=== PATIENT | male | born 1965 | race Caucasian/White ===

== ENCOUNTER → 2017-11-15 | Outpatient (CLI) | payer BC, OTHER ==
--- NOTE | 2017-11-15 21:25 | MR ---
EXAMINATION TYPE: MR brain wo/w con DATE OF EXAM: 11/15/2017 COMPARISON: NONE HISTORY: Headaches, Gadavist 9ml CONTRAST: Performed utilizing 9 mL intravenous Gadavist gadolinium contrast. TECHNIQUE: Multiplanar, multiecho imaging on a 3.0 Vee magnet is performed through the brain. Stud y is performed within 24 hours of arrival to the hospital. The craniovertebral junction is normal. The pituitary is normal. Diffusion-weighted imaging is performed. No abnormal hyperintensity is present to suggest an acute i ntracranial infarct or acute ischemic change. Signal within the brain appears unremarkable. Ventricles and sulci are appropriate for the patient age. Minimal mucosal thickening is within the left maxillary sinus. Mild mucosal thickening is within ethm oid air cells. No abnormal enhancement is evident. IMPRESSIONS: 1. No acute intracranial process.
== END | disposition home or self-care (01) ==
LOC: RADMRIMAIN 18:58
PROVIDERS: ATTEND Family Medicine
DX: R51 Headache (principal)
CPT/HCPCS: 70553; A9581

== ENCOUNTER → 2019-01-02 | Outpatient (CLI) | payer BC, OTHER ==
--- NOTE | 2019-01-03 10:26 | US ---
EXAMINATION TYPE: US kidneys/renal and bladder DATE OF EXAM: 01/02/2019 COMPARISON: NONE CLINICAL HISTORY: Hematuria R31.9. Macroscopic hematuria x twice. No pain. EXAM MEASUREMENTS: Right Kidney: 9.6 x 6.1 x 6.4 cm Left Kidney: 11.2 x 4.9 x 6.1 cm Right Kidney: No hydronephrosis or masses seen Left Kidney: Mild hydronephrosis. Cystic appearing lesion= 2.8 x 2.0 x 1.8 cm in mid pole. Bladder: Distended. Nonvascular lesions seen protruding from bladder wall. This could be due to wall hypertrophy and neurogenic bladder. Direct visualization is recommended. Underlying masses are not e xcluded. Right jet visualized Incidental finding- Prominent enlarged prostate = 7.1 x 6.8 x 4.4 cm IMPRESSION: 1. Mild left hydronephrosis. 2. Left renal cyst. 3. Urinary bladder masses versus trabeculation of urinary bladder wall. 4. Prostate hypertrophy
== END ==
LOC: RADUSWWP 16:18
PROVIDERS: ATTEND Family Medicine
DX: N13.30 Unspecified hydronephrosis (principal); N28.1 Cyst of kidney, acquired
CPT/HCPCS: 76770

== ENCOUNTER 2019-09-18 16:03 | Observation (INO) | payer BC ==
[2019-09-19 06:37] VITALS: TEMP 98.8
[2019-09-19 08:50] VITALS: RESP 20
[2019-09-19 12:06] VITALS: BP 90/50; PULSE 83
== END 2019-09-19 14:11 | disposition home or self-care (01) ==
LOC: EC 16:03 → INTOOBSV 18:44 → UNDOADMIN 18:44 → 3SCARD 18:44 → UNDODISIN 09-19 14:11
PROVIDERS: ADMIT Internal Medicine; ATTEND Internal Medicine
DX: I95.1 Orthostatic hypotension (principal); R55 Syncope and collapse; I42.8 Other cardiomyopathies; F31.9 Bipolar disorder, unspecified; I50.22 Chronic systolic (congestive) heart failure; Z95.810 Presence of automatic (implantable) cardiac defibrillator; Z83.3 Family history of diabetes mellitus; Z84.1 Family history of disorders of kidney and ureter; Z79.2 Long term (current) use of antibiotics; Z79.899 Other long term (current) drug therapy
CPT/HCPCS: 96361 ×3; 93005 ×2; 96360; 99285; 36415; 93306; 83880; 80053; 80048; 82550; 82553; 80162; 80178; 83735; 84484; 85025 ×2; 85610; 85730; 81003; 71046; G0378 ×2

== ENCOUNTER 2020-11-07 22:02 | Inpatient (IN) | payer BC, OTHER ==
--- NOTE | 2020-11-07 22:39 | ED ---
Abdominal Pain HPI - General Chief Complaint: Abdominal Pain Stated Complaint: hernia Time Seen by Provider: 11/07/20 22:21 Source: patient Mode of arrival: ambulatory Limitations: no limitations - History of Present Illness Initial Comments: This patient is a 55-year-old man who presents to be evaluated for abdominal discomfort. The patient states that he has long-standing history of umbilical hernia and that he usually wears a binder for this. He states that he had been doing a moderate amount of shoveling over the past few days and he notices h ernia was more prominent than usual. He states that in reducing it yesterday, he had more intense pain with it than he has ever had. He states that since reducing it yesterday he has not felt right. He also had an episode of vomiting yesterday. He states that he has not felt like eating today and has not really taken much to eat or drink. He has not noted any change in bowel movements. No change in urination. No scrotal or testicular pain or swelling. MD Complaint: abdominal pain -: days(s) Location: periumbilical Radiation: none Migration to: no migration Severity: mild Quality: other Consistency: constant Improves With: nothing Worsens With: nothing Associated Symptoms: vomiting - Related Data Home Medications Medication Instructions Recorded Confirmed Furosemide [Lasix] 60 mg PO DAILY 09/18/19 11/08/20 [place] Carbonate ER [Lithobid] 450 mg PO BID 09/18/19 11/08/20 Metoprolol Succinate [Toprol XL] 25 mg PO BID 11/08/20 11/08/20 QUEtiapine [SEROquel] 100 mg PO HS 11/08/20 11/08/20 Spironolactone 25 mg PO BID 11/08/20 11/08/20 buPROPion SR [Wellbutrin Sr] 150 mg PO TID 11/08/20 11/08/20 lisinopriL [Zestril] 2.5 mg PO DAILY 11/08/20 11/08/20 Allergies Allergy/AdvReac Type Severity Reaction Status Date / Time No Known Allergies Allergy Verified 11/08/20 08:40 Review of Systems ROS Statement: Those systems with pertinent positive or pertinent negative responses have been documented in the HPI. ROS Other: All systems not noted in ROS Statement are negative. Constitutional: Denies: fever, chills Respiratory: Denies: cough, dyspnea Cardiovascular: Denies: chest pain, palpitations, edema Gastrointestinal: Reports: as per HPI, abdominal pain, vomiting. Denies: nausea, diarrhea, constipation, hematemesis, melena, hematochezia Genitourinary: Denies: dysuria, hematuria, testicular pain, testicular mass Musculoskeletal: Denies: back pain Skin: Denies: rash Neurological: Denies: headache, weakness, numbness Past Medical History Past Medical History: Chest Pain / Angina, Heart Failure Additional Past Medical History / Comment(s): myocarditis, abd hernia History of Any Multi-Drug Resistant Organisms: None Reported Past Surgical History: Heart Catheterization, Pacemaker Past Anesthesia/Blood Transfusion Reactions: Previous Problems w/ Anesthesia Additional Past Anesthesia/Blood Transfusion Reaction / Comment(s): pt. states during the placement of his defibrillator he could feel everything they were doing but was unable to talk Type of Cardiac Device: AICD Device Placement Date:: 09/14/2019 Past Psychological History: Bipolar Smoking Status: Never smoker Past Alcohol Use History: None Reported Past Drug Use History: None Reported - Past Family History Father Family Medical History: Diabetes Mellitus Mother Family Medical History: Renal Disease Additional Family Medical History / Comment(s): pt. states he did not have any contact with his mother over the last 15 years but had step family tell him that she had a valve replacement and eventually from kidney failure General Exam Limitations: no limitations General appearance: alert, in no apparent distress Head exam: Present: atraumatic, normocephalic Eye exam: Present: normal appearance. Absent: scleral icterus, conjunctival injection Neck exam: Present: normal inspection, full ROM Respiratory exam: Present: normal lung sounds bilaterally. Absent: respiratory distress, wheezes, rales, rhonchi, stridor Cardiovascular Exam: Present: regular rate, normal rhythm, normal heart sounds. Absent: systolic murmur, diastolic murmur, rubs, gallop GI/Abdominal exam: Present: soft, tenderness, normal bowel sounds, hernia (There is an umbilical hernia, moderate tenderness). Absent: distended, guarding, rebound, rigid, mass, pulsatile mass Extremities exam: Present: normal inspection, normal capillary refill. Absent: pedal edema, calf tenderness Back exam: Present: normal inspection. Absent: CVA tenderness (R), CVA tenderness (L) Neurological exam: Present: alert Skin exam: Present: warm, dry, intact, normal color. Absent: rash Course Vital Signs 11/07/20 11/08/20 11/08/20 22:03 00:00 01:57 Temperature 99.3 F 99.4 F 99.4 F Pulse Rate 110 H 97 91 Pulse Rate [ Pulse Oximetery ] Respiratory 20 18 18 Rate Blood Pressure 132/84 122/75 111/73 Blood Pressure [Right Arm] O2 Sat by Pulse 98 96 96 Oximetry 11/08/20 02:00 Temperature 98.2 F Pulse Rate Pulse Rate [ 91 Pulse Oximetery ] Respiratory 16 Rate Blood Pressure Blood Pressure 116/69 [Right Arm] O2 Sat by Pulse 99 Oximetry - Reevaluation(s) Reevaluation #1: 11/07/20 23:50 I had reviewed the patient's CT which does suspected perforation. I shortly thereafter also received a call from radiology with their interpretation. Dr. Kamara, from surgery was called and we discussed the case. Patient started on antibiotics and will go to the OR. I did also phoned the patient's eyelet row marker Dr. Boom Link, who informed that the patient does have some dilated cardiomyopathy with an ejection fraction probably 15-20%, but no coronary artery disease by recent catheterization. Medical Decision Making - Lab Data Result diagrams: 11/11/20 06:33 11/09/20 05:09 Lab Results 11/07/20 11/07/20 11/07/20 Range/Units 22:40 22:40 22:40 WBC 15.7 H (3.8-10.6) k/uL RBC 4.91 (4.30-5.90) m/uL Hgb 14.0 (13.0-17.5) gm/dL Hct 41.5 (39.0-53.0) % MCV 84.5 (80.0-100.0) fL MCH 28.5 (25.0-35.0) pg MCHC 33.7 (31.0-37.0) g/dL RDW 13.4 (11.5-15.5) % Plt Count 258 (150-450) k/uL MPV 7.5 Neutrophils % 77 % Lymphocytes % 14 % Monocytes % 6 % Eosinophils % 3 % Basophils % 0 % Neutrophils # 12.0 H (1.3-7.7) k/uL Lymphocytes # 2.2 (1.0-4.8) k/uL Monocytes # 0.9 (0-1.0) k/uL Eosinophils # 0.4 (0-0.7) k/uL Basophils # 0.0 (0-0.2) k/uL Sodium 138 (137-145) mmol/L Potassium 4.0 (3.5-5.1) mmol/L Chloride 103 (98-107) mmol/L Carbon Dioxide 27 (22-30) mmol/L Anion Gap 8 mmol/L BUN 23 H (9-20) mg/dL Creatinine 1.16 (0.66-1.25) mg/dL Est GFR (CKD-EPI)AfAm 83 (>60 ml/min/1.73 sqM) Est GFR (CKD-EPI)NonAf 72 (>60 ml/min/1.73 sqM) Glucose 107 H (74-99) mg/dL Plasma Lactic Acid [place]man (0.7-2.0) mmol/L Calcium 9.7 (8.4-10.2) mg/dL Total Bilirubin 0.7 (0.2-1.3) mg/dL AST 21 (17-59) U/L ALT 26 (4-49) U/L Alkaline Phosphatase 47 (38-126) U/L Total Protein 7.1 (6.3-8.2) g/dL Albumin 4.1 (3.5-5.0) g/dL Amylase 45 (30-110) U/L Lipase 112 (23-300) U/L Urine Color Yellow Urine Appearance Clear (Clear) Urine pH 7.0 (5.0-8.0) Ur Specific [place] >1.050 H (1.001-1.035) Urine Protein Trace H (Negative) Urine Glucose (UA) Negative (Negative) Urine Ketones Negative (Negative) Urine Blood Negative (Negative) Urine Nitrite Negative (Negative) Urine Bilirubin Negative (Negative) Urine Urobilinogen <2.0 (<2.0) mg/dL Ur Leukocyte Esterase Negative (Negative) 11/07/20 Range/Units 22:40 WBC (3.8-10.6) k/uL RBC (4.30-5.90) m/uL Hgb (13.0-17.5) gm/dL Hct (39.0-53.0) % MCV (80.0-100.0) fL MCH (25.0-35.0) pg MCHC (31.0-37.0) g/dL RDW (11.5-15.5) % Plt Count (150-450) k/uL MPV Neutrophils % % Lymphocytes % % Monocytes % % Eosinophils % % Basophils % % Neutrophils # (1.3-7.7) k/uL Lymphocytes # (1.0-4.8) k/uL Monocytes # (0-1.0) k/uL Eosinophils # (0-0.7) k/uL Basophils # (0-0.2) k/uL Sodium (137-145) mmol/L Potassium (3.5-5.1) mmol/L Chloride (98-107) mmol/L Carbon Dioxide (22-30) mmol/L Anion Gap mmol/L BUN (9-20) mg/dL Creatinine (0.66-1.25) mg/dL Est GFR (CKD-EPI)AfAm (>60 ml/min/1.73 sqM) Est GFR (CKD-EPI)NonAf (>60 ml/min/1.73 sqM) Glucose (74-99) mg/dL Plasma Lactic Acid Usman 1.3 (0.7-2.0) mmol/L Calcium (8.4-10.2) mg/dL Total Bilirubin (0.2-1.3) mg/dL AST (17-59) U/L ALT (4-49) U/L Alkaline Phosphatase (38-126) U/L Total Protein (6.3-8.2) g/dL Albumin (3.5-5.0) g/dL Amylase (30-110) U/L Lipase (23-300) U/L Urine Color Urine Appearance (Clear) Urine pH (5.0-8.0) Ur Specific [place] (1.001-1.035) Urine Protein (Negative) Urine Glucose (UA) (Negative) Urine Ketones (Negative) Urine Blood (Negative) Urine Nitrite (Negative) Urine Bilirubin (Negative) Urine Urobilinogen (<2.0) mg/dL Ur Leukocyte Esterase (Negative) Critical Care Time Critical Care Time: Yes (30 minutes) Disposition Clinical Impression: Abdominal pain, Incarcerated umbilical hernia, Perforated bowel Disposition: ADMITTED IP TO THIS [facility] Condition: Serious Is patient prescribed a controlled substance at d/c from ED?: No
[2020-11-07 22:53] LABS: Basophils % (A) 0 %; Eosinophils # (A) 0.4 k/uL (0-0.7); Eosinophils % (A) 3 %; HCT 41.5 % (39.0-53.0); Lymphocytes # (A) 2.2 k/uL (1.0-4.8); Lymphocytes % (A) 14 %; MCH 28.5 pg (25.0-35.0); MCHC 33.7 g/dL (31.0-37.0); MCV 84.5 fL (80.0-100.0); Mean Platelet Volume 7.5; Monocytes # (A) 0.9 k/uL (0-1.0); Monocytes % (A) 6 %; Neutrophils % (A) 77 %; Platelet Count 258 k/uL (150-450); RBC 4.91 m/uL (4.30-5.90); RDW 13.4 % (11.5-15.5); WBC 15.7 k/uL (3.8-10.6)
[2020-11-07 23:09] LABS: Albumin 4.1 g/dL (3.5-5.0); Calcium 9.7 mg/dL (8.4-10.2); Total Bilirubin 0.7 mg/dL (0.2-1.3); Total Protein 7.1 g/dL (6.3-8.2)
--- NOTE | 2020-11-07 23:39 | CT ---
EXAMINATION TYPE: CT abdomen pelvis w con DATE OF EXAM: 11/07/2020 COMPARISON: None HISTORY: pain CT DLP: 1324 mGycm Automated exposure control for dose reduction was used. CONTRAST: Performed with IV Contrast, patient injected with 100 mL of Isovue 300. Images obtained from the diaphragm to the floor the pelvis with IV contrast. There is mild subsegmental atelectasis at the left lung base. There is no pleural effusion. Heart is enlarged. There is no pericardial effusion. There are cardiac leads. Liver shows no focal defect. There is some fatty infiltration of the posterior right lobe of the live r. Gall bladder appears normal. Spleen is intact. Stomach is intact. There is no pancreatic mass. There is no adrenal mass. Kidneys show satisfactory contrast opacificati on. There is no hydronephrosis. There are small cortical cysts in the kidneys that measure up to 2.5 cm. There is no hydronephrosis. Delayed images show normal renal excretion. There is no retroperitone al adenopathy. There is 2 mm calculus upper pole right kidney. There are some dilated small bowel loops in the mid abdomen. There is incarcerated umbilical hernia w hich contains small bowel. Small bowel is dilated up to 3.8 cm. There is extraluminal air collection in the mid abdomen posterior to the dilated small bowel. There i s mesenteric fat stranding around the air. Distal ileum has normal diameter. There are diverticula of the descending colon and sigmoid colon. There is moderate enlargement of the prostate gland that measures 7.5 cm. There is fat containing bilateral inguinal hernias. There is no evidence of a bladder mass. Lumbar vertebra have normal alignment. There is disc space narrowing at L5-S1. There is no lumbar com pression fracture. The bony pelvis is intact. The hip joints are intact. I see no bony destructive pr ocess. There is some degenerative cyst formation in the left acetabulum. IMPRESSION: Extraluminal air consistent with perforated small bowel in the mid abdomen. Incarcerated loop of smal l bowel which is dilated. It is not clear if this is the site of a mechanical bowel obstruction. Dila tahir small bowel also could relate to ileus. This exam was discussed with Dr. Galindo at 11:45 PM.
[2020-11-07] MEDS ORDERED: PIPERACILLIN-TAZOBACTAM 3.375 GM in SODIUM CHLORIDE 0.9% 100 ML IVPB STA (23:44)
[2020-11-08 00:01] LABS: Appearance,Urine Clear (Clear); Bilirubin,Urine Negative (Negative); Blood,Urine Negative (Negative); Color,Urine Yellow; Glucose,Urine (UA) Negative (Negative); Ketones,Urine Negative (Negative); Leukocyte Esterase,Urine Negative (Negative); Nitrite,Urine Negative (Negative); Protein,Urine Trace (Negative); Urobilinogen,Urine <2.0 mg/dL (<2.0)
[2020-11-08 00:02] LABS: Specific Gravity,Urine >1.050 (1.001-1.035)
[2020-11-08] MEDS ORDERED: HYDROmorphone 1 MG/ML 1 ML SYRINGE IVP PRN (00:14)
[2020-11-08] MEDS ORDERED: SODIUM CHLORIDE 0.9% 1,000 ML IV STA (00:14)
[2020-11-08] MEDS ORDERED: ONDANSETRON 4 MG/2 ML VIAL IVP PRN (00:14)
[2020-11-08] MEDS ORDERED: NALOXONE 0.4 MG/ML 1 ML VIAL IV PRN ×2 (00:14→06:41)
[2020-11-08] MEDS ORDERED: HYDROmorphone 0.5 MG/0.5 ML SYRINGE IVP PRN (00:14)
[2020-11-08 04:45] LABS: INR 0.9 (<1.2); Partial Thromboplastin Time 25.5 sec (22.0-30.0)
[2020-11-08] MEDS ORDERED: PHENYLEPHRINE-0.9% NACL SYG 1,000 MCG/10 ML SYRINGE ONE (06:12)
[2020-11-08] MEDS ORDERED: SUCCINYLCHOLINE CHLORIDE 100 MG/5 ML SYR IV ONE (06:12)
[2020-11-08] MEDS ORDERED: fentaNYL (PF) 50 MCG/ML 2 ML AMP ONE (06:12)
[2020-11-08] MEDS ORDERED: HYDROmorphone (PF) 1 MG/ML ONE (06:12)
[2020-11-08] MEDS ORDERED: PROPOFOL 10 MG/ML 20 ML VIAL IV ONE (06:12)
[2020-11-08] MEDS ORDERED: ONDANSETRON 4 MG/2 ML VIAL ONE (06:12)
[2020-11-08] MEDS ORDERED: MIDAZOLAM 2 MG/2 ML VIAL ONE (06:12)
[2020-11-08] MEDS ORDERED: GLYCOPYRROLATE 0.2 MG/ML 2 ML VIAL ONE (06:12)
[2020-11-08] MEDS ORDERED: ROCURONIUM 10 MG/ML (5 ML VIAL) IV ONE (06:12)
[2020-11-08] MEDS ORDERED: NEOSTIGMINE 1 MG/ML 10 ML VIAL ONE (06:12)
[2020-11-08] MEDS ORDERED: LIDOCAINE 1% INJ 10MG/ML (20 ML MDV) ONE (06:12)
[2020-11-08] MEDS ORDERED: DEXAMETHASONE SOD PHOSPHATE 4 MG/ML 1 ML VIAL ONE (06:12)
--- NOTE | 2020-11-08 06:14 | P.GSHP ---
History of Present Illness H&P Date: 11/08/20 55-year-old male presents to the emergency department with complaints of abdominal pain. He states that he has had a chronic abdominal wall hernia that he is able to spontaneously reduce. Over the past week, he has had increased level of activity with shoveling snow and states that he has had to reduce his hernia a few times. He states that yesterday on his attempt to reduce his hernia is hernia was noted to be hard to the touch and when he pushed it in there is a sharp stabbing pain. He has complained of abdominal pain ever since that time and feels the pain is sharp and stabbing. Denies any fevers, chills, chest pain or shortness of breath. CT of the abdomen and pelvis was performed and this did reveal a ventral hernia containing small bowel with a pocket of extraluminal air and fluid concern for bowel perforation. - Review of Systems All systems: negative Past Medical History Past Medical History: Chest Pain / Angina, Heart Failure, Syncope Additional Past Medical History / Comment(s): myocarditis, abd hernia History of Any Multi-Drug Resistant Organisms: None Reported Past Surgical History: Heart Catheterization, Pacemaker Past Anesthesia/Blood Transfusion Reactions: Previous Problems w/ Anesthesia Additional Past Anesthesia/Blood Transfusion Reaction / Comment(s): pt. states during the placement of his defibrillator he could feel everything they were doing but was unable to talk Type of Cardiac Device: AICD Device Placement Date:: 09/14/2019 Past Psychological History: Bipolar Smoking Status: Never smoker Past Alcohol Use History: None Reported Past Drug Use History: None Reported - Past Family History Father Family Medical History: Diabetes Mellitus Mother Family Medical History: Renal Disease Additional Family Medical History / Comment(s): pt. states he did not have any contact with his mother over the last 15 years but had step family tell him that she had a valve replacement and eventually from kidney failure Medications and Allergies Home Medications Medication Instructions Recorded Confirmed Type Furosemide [Lasix] 20 mg PO DAILY 09/18/19 11/08/20 History [place] Carbonate ER [Lithobid] 450 mg PO BID 09/18/19 11/08/20 History Metoprolol Succinate [Toprol XL] 25 mg PO BID 11/08/20 11/08/20 History QUEtiapine [SEROquel] 100 mg PO HS 11/08/20 11/08/20 History Spironolactone 25 mg PO BID 11/08/20 11/08/20 History buPROPion SR [Wellbutrin Sr] 150 mg PO TID 11/08/20 11/08/20 History lisinopriL [Zestril] 2.5 mg PO DAILY 11/08/20 11/08/20 History Allergies Allergy/AdvReac Type Severity Reaction Status Date / Time No Known Allergies Allergy Verified 11/07/20 22:06 Surgical - Exam Osteopathic Statement: *. No significant issues noted on an osteopathic structural exam other than those noted in the History and Physical/Consult. Vital Signs Temp Pulse Resp BP Pulse Ox 99.3 F 110 H 20 132/84 98 11/07/20 22:03 11/07/20 22:03 11/07/20 22:03 11/07/20 22:03 11/07/20 22:03 - General well developed, well nourished, no distress - Eyes PERRL - Neck trachea midline - Respiratory normal respiratory effort - Abdomen Soft, tender to palpation, mildly distended, midline ventral hernia - Psychiatric oriented to time, oriented to person, oriented to place Results - Labs 11/07/20 22:40 11/07/20 22:40 Abnormal Lab Results - Last 24 Hours (Table) 11/07/20 11/07/20 11/07/20 Range/Units 22:40 22:40 22:40 WBC 15.7 H (3.8-10.6) k/uL Neutrophils # 12.0 H (1.3-7.7) k/uL BUN 23 H (9-20) mg/dL Glucose 107 H (74-99) mg/dL Ur Specific [place] >1.050 H (1.001-1.035) Urine Protein Trace H (Negative) Diabetes panel 11/07/20 Range/Units 22:40 Sodium 138 (137-145) mmol/L Potassium 4.0 (3.5-5.1) mmol/L Chloride 103 (98-107) mmol/L Carbon Dioxide 27 (22-30) mmol/L BUN 23 H (9-20) mg/dL Creatinine 1.16 (0.66-1.25) mg/dL Glucose 107 H (74-99) mg/dL Calcium 9.7 (8.4-10.2) mg/dL AST 21 (17-59) U/L ALT 26 (4-49) U/L Alkaline Phosphatase 47 (38-126) U/L Total Protein 7.1 (6.3-8.2) g/dL Albumin 4.1 (3.5-5.0) g/dL Calcium panel 11/07/20 Range/Units 22:40 Calcium 9.7 (8.4-10.2) mg/dL Albumin 4.1 (3.5-5.0) g/dL Pituitary panel 11/07/20 Range/Units 22:40 Sodium 138 (137-145) mmol/L Potassium 4.0 (3.5-5.1) mmol/L Chloride 103 (98-107) mmol/L Carbon Dioxide 27 (22-30) mmol/L BUN 23 H (9-20) mg/dL Creatinine 1.16 (0.66-1.25) mg/dL Glucose 107 H (74-99) mg/dL Calcium 9.7 (8.4-10.2) mg/dL Adrenal panel 11/07/20 Range/Units 22:40 Sodium 138 (137-145) mmol/L Potassium 4.0 (3.5-5.1) mmol/L Chloride 103 (98-107) mmol/L Carbon Dioxide 27 (22-30) mmol/L BUN 23 H (9-20) mg/dL Creatinine 1.16 (0.66-1.25) mg/dL Glucose 107 H (74-99) mg/dL Calcium 9.7 (8.4-10.2) mg/dL Total Bilirubin 0.7 (0.2-1.3) mg/dL AST 21 (17-59) U/L ALT 26 (4-49) U/L Alkaline Phosphatase 47 (38-126) U/L Total Protein 7.1 (6.3-8.2) g/dL Albumin 4.1 (3.5-5.0) g/dL Assessment and Plan (1) Perforated bowel Narrative/Plan: 55-year-old male with incarcerated umbilical hernia and perforated bowel. Case was discussed in depth with the patient and the patient's . Plan is for exploratory laparotomy with possible bowel resection and possible ostomy placement. Based on finding a bowel perforation, I did discuss risk of sepsis with the patient. The patient does have a cardiac history with pacemaker placement and congestive heart failure and does follow with a metal machine setter at [facility] [place]. Apparently, the patient's was able to discuss the case with the patient's metal machine setter overnight and both the patient and the patient's understand the cardiac risk of any anesthesia or surgical procedure. Risks, benefits and alternatives to the procedure were provided to the patient. Consent was provided prior to attending the operating suite. Further recommendations after procedure. Current Visit: Yes Status: Acute Code(s): K63.1 - PERFORATION OF INTESTINE (NONTRAUMATIC) SNOMED Code(s): 09416138
[2020-11-08] MEDS ORDERED: LACTATED RINGERS 1,000 ML IV ONE ×2 (06:23→07:59)
[2020-11-08] MEDS ORDERED: diphenhydrAMINE 50 MG/ML 1 ML VIAL IVP PRN (06:41)
[2020-11-08] MEDS ORDERED: ROPIVACAINE 250 MG, HYDROMORPHONE (PF) 5 MG in SODIUM CHLORIDE 0.9% 200 ML EPIDURAL PRN (06:41)
[2020-11-08] MEDS: PIPERACILLIN-TAZOBACTAM 3.375 GM in SODIUM CHLORIDE 0.9% 100 ML IVPB SCH ×2 (06:49→16:18)
--- NOTE | 2020-11-08 09:35 | P.OP ---
Date of Procedure: 11/08/20 Preoperative Diagnosis: Pneumoperitoneum Postoperative Diagnosis: Small bowel perforation Ventral hernia Questionable mass of small bowel Procedure(s) Performed: Exploratory laparotomy, small bowel resection 2 with anastomosis, ventral hernia repair Anesthesia: ELDA Surgeon: Yvonne Kamara Pathology: other (Hernia sac, proximal small bowel, distal small bowel) Condition: stable Disposition: floor Indications for Procedure: 55-year-old male presents to the emergency department with complaints of abd ominal pain. He does have a history of a chronic ventral hernia and states this is normally reducible. He states that on recent reduction, he had a significant amount of pain that has been unrelenting. On workup, he was found to have extraluminal air around the small bowel with concern of small bowel perforation. Recommendation was made for exploratory laparotomy. Risks, benefits and alternatives were provided to the patient and the patient's . Consent was provided prior to the patient attending the operating suite. Operative Findings: Posterior perforation of proximal small bowel into the mesentery, loculated within mesentery Palpable mass versus significant inflammation of distal small bowel Ventral hernia Description of Procedure: The patient was brought into the operating suite and placed in supine position on the operating table. Sedation was provided by anesthesia and the patient underwent endotracheal intubation. The patient was then prepped and draped in regular sterile fashion. The ventral hernia was clearly palpated and was noted to be just superior to the umbilicus. A vertical midline incision was made and dissection was carried towards the fascia. The hernia sac was encountered quickly during the dissection. The fascia was then entered and the fascia was incised along the length of the incision the hernia sac was dissected free and handed as specimen with cleared fascial edges. On exam of the small bowel, a portion of the small bowel was noted to be significantly inflamed with necrotic-appearing mesentery. On exam, it did appear that a small bowel perforation had occurred to have loculated itself within the mesentery and was posterior in nature. Cultures were taken. This was noted to be in the proximal small bowel. The small bowel was then run from the ligament of Treitz towards the cecum. A second portion of abnormal small bowel was visualized and examined in the distal portion of the small bowel, likely ileum. This area was noted to be hard to the touch and masslike in quality. It is unclear whether these are inflammatory changes from the perforation of the proximal bowel that may have created an adhesive nature between the bowel loops. However, based on the finding, it was decided to perform small bowel resection of both of these abnormal findings of the small bowel. The proximal small bowel was treated first. A proximal and distal portion of this segment was decided upon for transection. Windows were created in the mesentery and the transection was performed using a ANTONELLA blue load 75 mm stapler. LigaSure device was used to dissect the small bowel from the mesentery. A proximal suture was placed on the small bowel and this was sent as specimen. An anastomosis was created using a ANTONELLA 75 mm load stapler. 2 enterotomies were created and the staple load was fired to create the anastomosis. The resulting enterotomy was closed with a TX 60 blue load stapler. The staple lines were imbricated using Lembert 3-0 Vicryl sutures. The rent in the mesentery was also closed with a running 3-0 Vicryl suture. Attention was then turned towards the distal small bowel. The mass was palpated and a distal and proximal dissection was decided upon. Transection at these locations was performed using a ANTONELLA blue load 75 mm stapler. LigaSure device was used to dissect the small bowel from the mesentery. An anastomosis was created in a similar fashion as above. The anastomosis was then imbricated using a 3-0 Vicryl suture and rent was also closed with a running 3-0 Vicryl suture. At this point approximately 1 L of warm normal saline was placed in the abdomen and suctioned. The fascia was then closed with a looped PDS suture. The fascial closure did incorporate the closure of the previous ventral hernia. Skin was then closed with skin fercho. Sterile dressing was applied. The patient was taken to the postanesthesia care unit in stable condition.
--- NOTE | 2020-11-08 11:25 | P.ANPRN ---
Procedure Note - Anesthesia - Epidural/Spinal Epidural Continuous Time Out Performed: Yes Date of Procedure: 11/08/20 Procedure Start Time: 06:13 Procedure Stop Time: 06:20 Location of Patient: PreOp Indication: Requested by Surgeon Sedation Type: Sedate with meaningful contact maintained Preparation: Sterile Dressing Position: Sitting Needle Guage: 18 Injectate: Test Dose Lidocaine1.5% w/1:200,000 epi Blood Aspirated: No Pain Paresthesia on Injection Noted: No Events: Uneventful and Well Tolerated
--- NOTE | 2020-11-08 11:27 | P.CRDCN ---
History of Present Illness Consult date: 11/08/20 Chief complaint: Abdominal discomfort History of present illness: This is a very pleasant 55-year-old gentleman with history of severe nonischemic cardiomyopathy and status post AICD the patient currently. 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 as well as bipolar disorder presented to the hospital complaining with abdominal discomfort. He was diagnosed was perforated intestine and subsequently the patient was taken to the OR and he underwent exploratory laparotomy with colon resection and anastomosis and also ventral hernia repair. The procedure was performed earlier today. The patient was seen after the surgery. He seems to be asymptomatic from a cardiac standpoint of view. He tolerated the surgery very well. No chest pain or chest discomfort at this point. He is euvolemic on examination. He is not on any of the cardiomyopathy medication at this point because surgery which was performed today and because of the marginally low blood pressure. We will start the patient on the cardiomyopathy medication once it is okay from the surgical standpoint of view and the patient was not nothing by mouth anymore. The blood work was reviewed and came in to be unremarkable with a normal CBC and normal BNP. Past Medical History Past Medical History: Chest Pain / Angina, Heart Failure, Syncope Additional Past Medical History / Comment(s): myocarditis, abd hernia History of Any Multi-Drug Resistant Organisms: None Reported Past Surgical History: Heart Catheterization, Pacemaker Past Anesthesia/Blood Transfusion Reactions: Previous Problems w/ Anesthesia Additional Past Anesthesia/Blood Transfusion Reaction / Comment(s): pt. states during the placement of his defibrillator he could feel everything they were doing but was unable to talk Type of Cardiac Device: AICD Device Placement Date:: 09/14/2019 Past Psychological History: Bipolar Smoking Status: Never smoker Past Alcohol Use History: None Reported Past Drug Use History: None Reported - Past Family History Father Family Medical History: Diabetes Mellitus Mother Family Medical History: Renal Disease Additional Family Medical History / Comment(s): pt. states he did not have any contact with his mother over the last 15 years but had step family tell him that she had a valve replacement and eventually from kidney failure Medications and Allergies Home Medications Medication Instructions Recorded Confirmed Type Furosemide [Lasix] 60 mg PO DAILY 09/18/19 11/08/20 History [place] Carbonate ER [Lithobid] 450 mg PO BID 09/18/19 11/08/20 History Metoprolol Succinate [Toprol XL] 25 mg PO BID 11/08/20 11/08/20 History QUEtiapine [SEROquel] 100 mg PO HS 11/08/20 11/08/20 History Spironolactone 25 mg PO BID 11/08/20 11/08/20 History buPROPion SR [Wellbutrin Sr] 150 mg PO TID 11/08/20 11/08/20 History lisinopriL [Zestril] 2.5 mg PO DAILY 11/08/20 11/08/20 History Allergies Allergy/AdvReac Type Severity Reaction Status Date / Time No Known Allergies Allergy Verified 11/08/20 08:40 Physical Exam Vitals: Vital Signs Temp Pulse Pulse Pulse Resp BP BP 11/08/20 08:55 84 16 109/60 11/08/20 08:40 89 16 108/64 11/08/20 08:27 100.1 F H 98 16 111/61 11/08/20 08:00 84 16 11/08/20 05:00 98.8 F 93 16 120/78 11/08/20 04:25 98.8 F 93 14 116/73 11/08/20 02:00 98.2 F 91 16 116/69 11/08/20 01:57 99.4 F 91 18 111/73 11/08/20 00:00 99.4 F 97 18 122/75 11/07/20 22:03 99.3 F 110 H 20 132/84 Pulse Ox 11/08/20 08:55 96 11/08/20 08:40 97 11/08/20 08:27 100 11/08/20 08:00 11/08/20 05:00 95 11/08/20 04:25 94 L 11/08/20 02:00 99 11/08/20 01:57 96 11/08/20 00:00 96 11/07/20 22:03 98 Intake and Output 11/07/20 11/08/20 11/08/20 22:59 06:59 14:59 Intake Total 1750 120 Output Total 175 Balance 1750 -55 Intake: IV 1100 120 Intake, IV Titration 650 Amount Sodium Chloride 0.9% 1, 650 000 ml @ 130 mls/hr IV . Q7H42M STA Rx#:[id number] Output: Gastric Drainage 30 Urine 120 Estimated Blood Loss 25 Other: Voiding Method Toilet Indwelling Catheter # Voids 1 Weight 97.522 kg 98.2 kg - Constitutional General appearance: no acute distress - Respiratory Respiratory: bilateral: diminished - Cardiovascular Rhythm: regular Heart sounds: normal: S1, S2 Results 11/07/20 22:40 11/07/20 22:40 Cardiac Enzymes 11/07/20 Range/Units 22:40 AST 21 (17-59) U/L Coagulation 11/08/20 Range/Units 04:17 PT 10.0 (9.0-12.0) sec APTT 25.5 (22.0-30.0) sec CBC 11/07/20 Range/Units 22:40 WBC 15.7 H (3.8-10.6) k/uL RBC 4.91 (4.30-5.90) m/uL Hgb 14.0 (13.0-17.5) gm/dL Hct 41.5 (39.0-53.0) % Plt Count 258 (150-450) k/uL Comprehensive Metabolic Panel 11/07/20 Range/Units 22:40 Sodium 138 (137-145) mmol/L Potassium 4.0 (3.5-5.1) mmol/L Chloride 103 (98-107) mmol/L Carbon Dioxide 27 (22-30) mmol/L BUN 23 H (9-20) mg/dL Creatinine 1.16 (0.66-1.25) mg/dL Glucose 107 H (74-99) mg/dL Calcium 9.7 (8.4-10.2) mg/dL AST 21 (17-59) U/L ALT 26 (4-49) U/L Alkaline Phosphatase 47 (38-126) U/L Total Protein 7.1 (6.3-8.2) g/dL Albumin 4.1 (3.5-5.0) g/dL Current Medications Generic Name Dose Route Start Last Admin Trade Name Freq PRN Reason Stop Dose Admin Diphenhydramine HCl 25 mg 11/08/20 06:41 Diphenhydramine 50 Mg/Ml 1 Ml Vial IVP Q6HR PRN Itching Heparin Sodium (Porcine) 5,000 unit 11/08/20 16:00 Heparin Sodium,Porcine 5,000 Unit/Ml 1 Ml Vial SQ Q8HR NAS Hydromorphone HCl 0.5 mg 11/08/20 00:14 Hydromorphone 0.5 Mg/0.5 Ml Syringe IVP Q3HR PRN Moderate Pain Piperacillin Sod/Tazobactam 100 mls @ 25 mls/hr 11/08/20 08:00 11/08/20 06:49 Sod 3.375 gm/ Sodium Chloride IVPB 100 mls Q8HR NAS Administration Ropivacaine 250 mg/ 250 mls @ 0 mls/hr 11/08/20 06:41 Hydromorphone HCl 5 mg/ Sodium EPIDURAL Chloride .Q0M PRN Pain Control Protocol Per Protocol Lactated Ringer's 1,000 mls @ 125 mls/hr 11/08/20 09:30 Lactated Ringers IV .Q8H NAS Naloxone HCl 0.2 mg 11/08/20 00:14 Naloxone 0.4 Mg/Ml 1 Ml Vial IV Q2M PRN Opioid Reversal Naloxone HCl 0.2 mg 11/08/20 06:41 Naloxone 0.4 Mg/Ml 1 Ml Vial IV Q2M PRN Opioid Reversal Ondansetron HCl 4 mg 11/08/20 00:14 Ondansetron 4 Mg/2 Ml Vial IVP Q8HR PRN Nausea And Vomiting Pantoprazole Sodium 40 mg 11/08/20 09:00 Pantoprazole 40 Mg/10 Ml Vial IV DAILY NAS Intake and Output 11/07/20 11/08/20 11/08/20 22:59 06:59 14:59 Intake Total 1750 120 Output Total 175 Balance 1750 -55 Intake: IV 1100 120 Intake, IV Titration 650 Amount Sodium Chloride 0.9% 1, 650 000 ml @ 130 mls/hr IV . Q7H42M STA Rx#:[id number] Output: Gastric Drainage 30 Urine 120 Estimated Blood Loss 25 Other: Voiding Method Toilet Indwelling Catheter # Voids 1 Weight 97.522 kg 98.2 kg 11/07/20 22:40 11/07/20 22:40 Assessment and Plan Assessment: Assessment #1 status post exploratory laparotomy with bowel resection and hernia repair #2 severe nonischemic cardiomyopathy #3 status post AICD #4 bipolar disorder Plan #1 the patient tolerated the surgery very well #2 he is compensating from the cardiovascular standpoint of view #3 he is euvolemic on examination #4 restart his cardiomyopathy medication once that is okay from the surgical standpoint of view and the blood pressure is better #5 follow-up with the patient
[2020-11-08] MEDS: PANTOPRAZOLE 40 MG/10 ML VIAL IV SCH (11:39)
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
[2020-11-08] MEDS: LACTATED RINGERS 1,000 ML IV SCH ×2 (16:18→21:45)
[2020-11-08] MEDS: HEPARIN SODIUM,PORCINE 5,000 UNIT/ML 1 ML VIAL SQ SCH (16:26)
--- NOTE | 2020-11-08 17:49 | P.CONS ---
History of Present Illness - Reason for Consult Consult date: 11/08/20 Medical management - Chief Complaint Abdominal discomfort - History of Present Illness 55-year-old male patient with history of hypertension, severe nonischemic cardiomyopathy status post AICD presented to the ED with complaint of abdominal discomfort; patient was worked up to ER and admitted with small bowel perforation; patient underwent exploratory laparotomy with bowel resection along with omental hernia repair; patient is POD #0 Patient is seen postoperatively; requesting oral intake and removal of NG tube; patient currently has NG tube to suction Review of Systems REVIEW OF SYSTEMS: CONSTITUTIONAL: No fever, no malaise, no fatigue. HEENT: No recent visual problems or hearing problems. Denied any sore throat. CARDIOVASCULAR: No chest pain, orthopnea, PND, no palpitations, no syncope. PULMONARY: No shortness of breath, no cough, no hemoptysis. GASTROINTESTINAL: No diarrhea, no nausea, no vomiting, no abdominal pain. NEUROLOGICAL: No headaches, no weakness, no numbness. HEMATOLOGICAL: Denies any bleeding or petechiae. GENITOURINARY: Denies any burning micturition, frequency, or urgency. MUSCULOSKELETAL/RHEUMATOLOGICAL: Denies any joint pain, swelling, or any muscle pain. ENDOCRINE: Denies any polyuria or polydipsia. The rest of the 14-point review of systems is negative. Past Medical History Past Medical History: Chest Pain / Angina, Heart Failure, Syncope Additional Past Medical History / Comment(s): myocarditis, abd hernia History of Any Multi-Drug Resistant Organisms: None Reported Past Surgical History: Heart Catheterization, Pacemaker Past Anesthesia/Blood Transfusion Reactions: Previous Problems w/ Anesthesia Additional Past Anesthesia/Blood Transfusion Reaction / Comm: pt. states during the placement of his defibrillator he could feel everything they were doing but was unable to talk Type of Cardiac Device: AICD Device Placement Date:: 09/14/2019 Past Psychological History: Bipolar Smoking Status: Never smoker Past Alcohol Use History: None Reported Past Drug Use History: None Reported - Past Family History Father Family Medical History: Diabetes Mellitus Mother Family Medical History: Renal Disease Additional Family Medical History / Comment(s): pt. states he did not have any contact with his mother over the last 15 years but had step family tell him that she had a valve replacement and eventually from kidney failure Medications and Allergies Home Medications Medication Instructions Recorded Confirmed Type Furosemide [Lasix] 60 mg PO DAILY 09/18/19 11/08/20 History [place] Carbonate ER [Lithobid] 450 mg PO BID 09/18/19 11/08/20 History Metoprolol Succinate [Toprol XL] 25 mg PO BID 11/08/20 11/08/20 History QUEtiapine [SEROquel] 100 mg PO HS 11/08/20 11/08/20 History Spironolactone 25 mg PO BID 11/08/20 11/08/20 History buPROPion SR [Wellbutrin Sr] 150 mg PO TID 11/08/20 11/08/20 History lisinopriL [Zestril] 2.5 mg PO DAILY 11/08/20 11/08/20 History Allergies Allergy/AdvReac Type Severity Reaction Status Date / Time No Known Allergies Allergy Verified 11/08/20 08:40 Physical Exam Vitals: Vital Signs Temp Pulse Pulse Pulse Resp BP BP 11/08/20 12:00 84 107/69 11/08/20 11:30 84 106/70 11/08/20 11:00 85 107/68 11/08/20 10:30 85 101/67 11/08/20 10:00 88 101/68 11/08/20 09:45 86 107/68 11/08/20 09:30 85 106/71 11/08/20 09:15 97.8 F 88 17 108/71 11/08/20 08:55 84 16 109/60 11/08/20 08:40 89 16 108/64 11/08/20 08:27 100.1 F H 98 16 111/61 11/08/20 08:00 84 16 11/08/20 05:00 98.8 F 93 16 120/78 11/08/20 04:25 98.8 F 93 14 116/73 11/08/20 02:00 98.2 F 91 16 116/69 11/08/20 01:57 99.4 F 91 18 111/73 11/08/20 00:00 99.4 F 97 18 122/75 11/07/20 22:03 99.3 F 110 H 20 132/84 Pulse Ox 11/08/20 12:00 11/08/20 11:30 11/08/20 11:00 11/08/20 10:30 11/08/20 10:00 11/08/20 09:45 11/08/20 09:30 11/08/20 09:15 95 11/08/20 08:55 96 11/08/20 08:40 97 11/08/20 08:27 100 11/08/20 08:00 11/08/20 05:00 95 11/08/20 04:25 94 L 11/08/20 02:00 99 11/08/20 01:57 96 11/08/20 00:00 96 11/07/20 22:03 98 Intake and Output 11/07/20 11/08/20 11/08/20 22:59 06:59 14:59 Intake Total 1750 120 Output Total 175 Balance 1750 -55 Intake: IV 1100 120 Intake, IV Titration 650 Amount Sodium Chloride 0.9% 1, 650 000 ml @ 130 mls/hr IV . Q7H42M STA Rx#:[id number] Output: Gastric Drainage 30 Urine 120 Estimated Blood Loss 25 Other: Voiding Method Toilet Indwelling Catheter # Voids 1 Weight 97.522 kg 98.2 kg Limitations: no limitations General appearance: alert, in no apparent distress Head exam: Present: atraumatic, normocephalic Eye exam: Present: normal appearance. Absent: scleral icterus, conjunctival injection Neck exam: Present: normal inspection, full ROM Respiratory exam: Present: normal lung sounds bilaterally. Absent: respiratory distress, wheezes, rales, rhonchi, stridor Cardiovascular Exam: Present: regular rate, normal rhythm, normal heart sounds. Absent: systolic murmur, diastolic murmur, rubs, gallop GI/Abdominal exam: Present: soft, tenderness, normal bowel sounds, hernia (There is an umbilical hernia, moderate tenderness). Absent: distended, guarding, rebound, rigid, mass, pulsatile mass Extremities exam: Present: normal inspection, normal capillary refill. Absent: pedal edema, calf tenderness Back exam: Present: normal inspection. Absent: CVA tenderness (R), CVA tenderness (L) Neurological exam: Present: alert Skin exam: Present: warm, dry, intact, normal color. Absent: rash Results CBC & Chem 7: 11/07/20 22:40 11/07/20 22:40 Labs: Abnormal Lab Results - Last 24 Hours (Table) 11/07/20 11/07/20 11/07/20 Range/Units 22:40 22:40 22:40 WBC 15.7 H (3.8-10.6) k/uL Neutrophils # 12.0 H (1.3-7.7) k/uL BUN 23 H (9-20) mg/dL Glucose 107 H (74-99) mg/dL Ur Specific [place] >1.050 H (1.001-1.035) Urine Protein Trace H (Negative) Assessment and Plan Assessment: 1. Small bowel obstruction; status post exploratory laparotomy with small bowel resection with anastomosis; POD #0 - Patient has NG tube to suctioning; we will monitor electrolytes; continue with IV fluid hydration; incentive spirometry - Continue with IV antibiotics in form of Zosyn 3.375 g IV every 8 hours 2. Severe nonischemic cardiomyopathy; patient is status post AICD - Cardiology on board; patient is currently euvolemic; compensated from cardiovascular standpoint; patient will be restarted on home medications once stable and blood pressure is improved 3. Mild renal injury/dehydration; continue with IV fluid hydration; monitor strict SILVESTRE's; monitor renal function and electrolytes 4. Hypertension; patient takes metoprolol 25 mg twice a day; blood pressure is stable; will resume home medications once oral intake is established 5. Bipolar disorder; psychiatry on board to review psych medications DVT prophylaxis; per surgery discretion CODE STATUS; full code
[2020-11-08] MEDS ORDERED: LITHIUM CARBONATE 150 MG CAP PO SCH (21:00)
[2020-11-08] MEDS ORDERED: QUEtiapine 200 MG TAB NG-TUBE SCH (21:00)
[2020-11-08] MEDS ORDERED: QUEtiapine 200 MG TAB PO SCH (21:00)
[2020-11-08] MEDS ORDERED: LITHIUM CARBONATE ER 450 MG TABLET.ER PO SCH (21:00)
[2020-11-08] MEDS: LITHIUM CARBONATE 150 MG CAP NG-TUBE SCH (22:23)
[2020-11-08] MEDS: OLANZapine ODT 5 MG TAB PO SCH (22:27)
[2020-11-09] MEDS: HEPARIN SODIUM,PORCINE 5,000 UNIT/ML 1 ML VIAL SQ SCH ×4 (00:08→23:50)
[2020-11-09] MEDS: LACTATED RINGERS 1,000 ML IV SCH ×3 (04:05→17:25)
[2020-11-09] MEDS: PIPERACILLIN-TAZOBACTAM 3.375 GM in SODIUM CHLORIDE 0.9% 100 ML IVPB SCH ×5 (07:59→23:50)
[2020-11-09] MEDS: LITHIUM CARBONATE 150 MG CAP NG-TUBE SCH ×2 (08:00→21:00)
[2020-11-09] MEDS: PANTOPRAZOLE 40 MG/10 ML VIAL IV SCH (08:00)
[2020-11-09 09:12] LABS: Basophils # (A) 0.03 X 10*3/uL (0.00-0.10); Basophils % (A) 0.2 %; Eosinophils # (A) 0.09 X 10*3/uL (0.04-0.35); Eosinophils % (A) 0.6 %; HCT 39.1 % (39.6-50.0); Lymphocytes # (A) 1.61 X 10*3/uL (0.90-5.00); Lymphocytes % (A) 11.1 %; MCHC 30.7 g/dL (32.0-37.0); MCV 91.4 fL (80.0-97.0); Mean Platelet Volume 10.8 fL (9.5-12.2); Monocytes # (A) 1.34 X 10*3/uL (0.20-1.00); Monocytes % (A) 9.2 %; Neutrophils # (A) 11.37 X 10*3/uL (1.80-7.70); Neutrophils % (A) 78.6 %; Platelet Count 237 X 10*3/uL (140-440); RBC 4.28 X 10*6/uL (4.40-5.60); WBC 14.49 X 10*3/uL (4.50-10.00)
--- NOTE | 2020-11-09 09:24 | P.PN ---
Progress Note - Text Progress Note Date: 11/09/20 Postoperative day #1 status post small bowel resection ,explaretory laparotomy ,epidural catheter placed for postoperative analgesia, patient doing well epidural site okay, patient currently on combination of epidural infusion solution of Ropivacaine 0.0625% and Dilaudid 20 g per mL the infusion rate at 6 ml per hour , patient had no motor deficit epidural site okay , vital signs stable ,VAS 2 /10 , Assessment and plan= post operative day #1 patient doing well ,pain well controlled , there is no anesthesia related complications
--- NOTE | 2020-11-09 09:35 | P.PN ---
Subjective Progress Note Date: 11/09/20 Patient seen and examined at bedside. States his abdominal pain is well- controlled. Epidural in place. Feliz in place. No bowel function as of yet. Patient has ambulated in the room. Objective - Vital Signs Vital signs: Vital Signs Temp 98.8 F 11/09/20 04:22 Pulse 102 H 11/09/20 04:22 Resp 14 11/09/20 04:22 BP 112/69 11/09/20 04:22 Pulse Ox 93 L 11/09/20 05:00 Intake & Output 11/08/20 11/09/20 11/09/20 18:59 06:59 18:59 Intake Total 120 1600 Output Total 875 1250 Balance -755 350 Weight 98.2 kg 98 kg Intake: IV 120 Intake, IV Titration 1600 Amount Lactated Ringers 1,000 ml 1500 @ 125 mls/hr IV .Q8H NAS Rx#:[id number] Piperacillin-Tazobactam 3 100 .375 gm In Sodium Chloride 0.9% 100 ml @ 25 mls/hr IVPB Q8HR NAS Rx# :[id number] Oral 0 Output: Gastric Drainage 230 850 Urine 620 400 Estimated Blood Loss 25 Other: Voiding Method Indwelling Catheter Indwelling Catheter - Constitutional General appearance: Present: cooperative, no acute distress - EENT Eyes: Present: PERRLA - Respiratory Details: No difficulty with respiration - Gastrointestinal Gastrointestinal Comment(s): Soft, appropriate tenderness, nondistended, no rebound, no guarding, midline incision with surgical dressing in place - Psychiatric Psychiatric: Present: A&O x's 3 - Labs CBC & Chem 7: 11/09/20 05:09 11/07/20 22:40 Labs: Abnormal Lab Results - Last 24 Hours (Table) 11/09/20 Range/Units 05:09 WBC 14.49 H (4.50-10.00) X 10*3/uL RBC 4.28 L (4.40-5.60) X 10*6/uL Hgb 12.0 L (13.0-17.0) g/dL Hct 39.1 L (39.6-50.0) % MCHC 30.7 L (32.0-37.0) g/dL Immature Gran # 0.05 H (0.00-0.04) X 10*3/uL Neutrophils # 11.37 H (1.80-7.70) X 10*3/uL Monocytes # 1.34 H (0.20-1.00) X 10*3/uL Microbiology - Last 24 Hours (Table) 11/08/20 07:20 Gram Stain - Preliminary Other - Other Wound Culture - Preliminary 11/08/20 00:05 Blood Culture - Preliminary Blood No Growth after 24 hours 11/07/20 23:50 Blood Culture - Preliminary Blood No Growth after 24 hours 11/08/20 07:20 Anaerobic Culture - Preliminary Other - Other Assessment and Plan (1) Perforated bowel Narrative/Plan: Postoperative day #1, small bowel resection 2 - Continue nasogastric tube to low intermittent suction - Await further bowel function - Keep nothing by mouth for now - Appreciate psychiatric recommendations on patient's medication - Appreciate medical recommendations - Increase activity with ambulation, this was instructed to the patient - Continue incentive spirometry - Continue epidural and Feliz catheter for another 24 hours Current Visit: Yes Status: Acute Code(s): K63.1 - PERFORATION OF INTESTINE (NONTRAUMATIC) SNOMED Code(s): 01293133
[2020-11-09 09:38] LABS: African American GFR (CKD) 87.7 (60.0-200.0); Albumin 3.8 g/dL (3.80-4.90); Albumin/Globulin Ratio 2.24 (1.60-3.17); Anion Gap 5.4 mmol/L (4.00-12.00); BUN/Creat Ratio 16.36 Ratio (12.00-20.00); Calcium 8.8 mg/dL (8.7-10.3); Carbon Dioxide 27.6 mmol/L (21.6-31.8); Globulin 1.7 g/dL (1.6-3.3); Non-African American GFR(CKD) 75.7 (60.0-200.0); Potassium 4.6 mmol/L (3.5-5.5); Total Bilirubin 0.9 mg/dL (0.2-1.2); Total Protein 5.5 g/dL (6.2-8.2)
--- NOTE | 2020-11-09 09:44 | P.PN ---
Progress Note - Text Progress Note Date: 11/09/20 Interval History: Patient was seen resting in bed and was directable and agreeable to speak with the software writer. The patient reports that he is feeling well today. He is not reporting any suicidal or homicidal ideation, intention, and/or plan. He is not reporting any auditory or visual hallucinations. He is currently not reporting any significant symptoms of psychosis. He denies any paranoia or delusions. He reports no concerns of surveillance, thought insertion, thought projection, or magical thinking. The patient did have an episode of hypotension last night after his Seroquel was increased to 200 mg from 100 mg. And should be noted that when the patient's is present, there appears to be increased concern for possible triggers of víctor including increased intake of sugars or some electric pulses from the television. When the is not noted to be present, the patient is reported to be okay to watch TV and eat a popsicle. Currently, the patient is not endorsing any significant symptoms of víctor. Mental Status Exam: General Appearance: Patient appears to be stated age is alert, directable, and cooperative. NG tube in place. Behavior: Patient is calmly seated without any agitated behavior. Speech: Patient's speech is fluent and nonpressured. Low in volume. Mood/Affect: Mood is improving mildly, affect is congruent and constricted. Suicidality/Homicidality: Patient denies having any suicidal or homicidal ideation intent or plan. Perceptions: Patient denies any visual hallucinations and denies any auditory hallucinations Though content/process: There is no evidence of any delusional thought content and thought process is linear and goal-directed. Memory and concentration: AOX3, grossly intact for the purposes of this session Judgment and insight: Improving mildly Assessment Bipolar disorder, type I Plan: -At this time patient DOES NOT meet criteria for inpatient psychiatric admission. The patient is currently not exhibiting any manic symptoms and is calm and cooperative. -Would recommend the following medication changes/additions: We will restart the patient's lithium 450 mg twice a day. [place] level 0.5 - No changes in dose will be made. Decrease Seroquel to 150 mg at bedtime due to hypotension. We will hold Wellbutrin at this time. Patient may continue Wellbutrin in the outpatient setting. Concern for manic switch on Wellbutrin. -Psychiatry will sign off at this point, please contact with any questions, or reconsult if necessary.
--- NOTE | 2020-11-09 11:04 | P.PN ---
Subjective Progress Note Date: 11/09/20 Principal diagnosis: Severe nonischemic cardiomyopathy This is a pleasant 55-year-old gentleman with severe nonischemic cardiomyopathy and status post AICD who presented to the hospital with abdominal discomfort and was diagnosed with perforated bowel. He underwent surgery. The patient was seen today. He is doing better. He is slightly tachycardic and going to start the patient back on Toprol-XL with the home dose at 25 mg by mouth twice a day. Down the line we will resume the rest of his cardiomyopathy medications. Objective - Vital Signs Vital signs: Vital Signs Temp 98.8 F 11/09/20 04:22 Pulse 102 H 11/09/20 08:00 Resp 14 11/09/20 08:00 BP 112/69 11/09/20 04:22 Pulse Ox 93 L 11/09/20 05:00 Intake & Output 11/08/20 11/09/20 11/09/20 18:59 06:59 18:59 Intake Total 120 1600 Output Total 875 1250 Balance -755 350 Weight 98.2 kg 98 kg Intake: IV 120 Intake, IV Titration 1600 Amount Lactated Ringers 1,000 ml 1500 @ 125 mls/hr IV .Q8H [facility] Rx#:[id number] Piperacillin-Tazobactam 3 100 .375 gm In Sodium Chloride 0.9% 100 ml @ 25 mls/hr IVPB Q8HR [facility] Rx# :[id number] Oral 0 Output: Gastric Drainage 230 850 Urine 620 400 Estimated Blood Loss 25 Other: Voiding Method Indwelling Catheter Indwelling Catheter Indwelling Catheter - Constitutional General appearance: Present: no acute distress - Respiratory Respiratory: bilateral: CTA - Cardiovascular Rhythm: regular Heart sounds: normal: S1, S2 - Labs CBC & Chem 7: 11/09/20 05:09 11/09/20 05:09 Labs: Abnormal Lab Results - Last 24 Hours (Table) 11/09/20 11/09/20 Range/Units 05:09 05:09 WBC 14.49 H (4.50-10.00) X 10*3/uL RBC 4.28 L (4.40-5.60) X 10*6/uL Hgb 12.0 L (13.0-17.0) g/dL Hct 39.1 L (39.6-50.0) % MCHC 30.7 L (32.0-37.0) g/dL Immature Gran # 0.05 H (0.00-0.04) X 10*3/uL Neutrophils # 11.37 H (1.80-7.70) X 10*3/uL Monocytes # 1.34 H (0.20-1.00) X 10*3/uL Glucose 115 H (70-110) mg/dL Total Protein 5.5 L (6.2-8.2) g/dL Microbiology - Last 24 Hours (Table) 11/08/20 07:20 Gram Stain - Preliminary Other - Other Wound Culture - Preliminary 11/08/20 00:05 Blood Culture - Preliminary Blood No Growth after 24 hours 11/07/20 23:50 Blood Culture - Preliminary Blood No Growth after 24 hours 11/08/20 07:20 Anaerobic Culture - Preliminary Other - Other Assessment and Plan Assessment: Assessment #1 status post exploratory laparotomy with bowel resection and hernia repair #2 severe nonischemic cardiomyopathy #3 status post AICD #4 bipolar disorder Plan #1 the patient tolerated the surgery very well #2 restart the patient back on Toprol-XL #3 follow-up with the patient
--- NOTE | 2020-11-09 14:46 | P.PN ---
Subjective Progress Note Date: 11/09/20 55-year-old male patient with history of hypertension, severe nonischemic cardiomyopathy status post AICD presented to the ED with complaint of abdominal discomfort; patient was worked up to ER and admitted with small bowel perforation; patient underwent exploratory laparotomy with bowel resection along with omental hernia repair; patient is POD #0 Patient is seen postoperatively; requesting oral intake and removal of NG tube; patient currently has NG tube to suction 11/09/2020 Patient is seen resting comfortably in bed; reports he has been ambulating in the room since morning; pain controlled fairly well; patient has epidural in place Vital signs are reviewed with temp of 98.8, pulse 102, respiration 14 and blood pressure 112/69 with SpO2 of 93% Lab review reveals white blood count of 14.4, hemoglobin 12.2 and hematocrit of 39.1; chemical profile sodium 138, potassium 4.0, BUN/creatinine of 23/1.16 Patient has been evaluated by psych and medication adjustment has been done; cardiology on board and recommending to start patient back on Toprol-XL Objective - Vital Signs Vital signs: Vital Signs Temp 98.8 F 11/09/20 04:22 Pulse 102 H 11/09/20 04:22 Resp 14 11/09/20 04:22 BP 112/69 11/09/20 04:22 Pulse Ox 93 L 11/09/20 05:00 Intake & Output 11/08/20 11/09/20 11/09/20 18:59 06:59 18:59 Intake Total 120 1600 Output Total 875 1250 Balance -755 350 Weight 98.2 kg 98 kg Intake: IV 120 Intake, IV Titration 1600 Amount Lactated Ringers 1,000 ml 1500 @ 125 mls/hr IV .Q8H [facility] Rx#:[id number] Piperacillin-Tazobactam 3 100 .375 gm In Sodium Chloride 0.9% 100 ml @ 25 mls/hr IVPB Q8HR [facility] Rx# :[id number] Oral 0 Output: Gastric Drainage 230 850 Urine 620 400 Estimated Blood Loss 25 Other: Voiding Method Indwelling Catheter Indwelling Catheter - Exam - Constitutional General appearance: Present: average body habitus, cooperative, no acute distress - EENT Eyes: Present: anicteric sclerae, EOMI, PERRLA, normal appearance ENT: Present: hearing grossly normal, normal oropharynx Ears: bilateral: normal - Neck Neck: Present: normal ROM. Absent: lymphadenopathy, rigidity, thyromegaly Carotids: negative: bruit present Thyroid: bilateral: normal size, negative: enlarged, nodule - Respiratory Respiratory: bilateral: CTA, negative: rales, rhonchi, wheezing - Cardiovascular Rhythm: regular Heart sounds: normal: S1, S2 Abnormal Heart Sounds: Absent: systolic murmur, diastolic murmur - Gastrointestinal General gastrointestinal: Present: normal bowel sounds, soft. Absent: distended, organomegaly, tenderness - Genitourinary Genitourinary Comment(s): deferred - Integumentary Integumentary: Present: normal turgor. Absent: jaundiced, rash, ulcer - Neurologic Neurologic: Present: CNII-XII intact. Absent: focal deficits - Musculoskeletal Musculoskeletal: Present: gait normal, strength equal bilaterally - Psychiatric Psychiatric: Present: A&O x's 3, appropriate affect, intact judgment & insight - Labs CBC & Chem 7: 11/09/20 05:09 11/09/20 05:09 Labs: Abnormal Lab Results - Last 24 Hours (Table) 11/09/20 11/09/20 Range/Units 05:09 05:09 WBC 14.49 H (4.50-10.00) X 10*3/uL RBC 4.28 L (4.40-5.60) X 10*6/uL Hgb 12.0 L (13.0-17.0) g/dL Hct 39.1 L (39.6-50.0) % MCHC 30.7 L (32.0-37.0) g/dL Immature Gran # 0.05 H (0.00-0.04) X 10*3/uL Neutrophils # 11.37 H (1.80-7.70) X 10*3/uL Monocytes # 1.34 H (0.20-1.00) X 10*3/uL Glucose 115 H (70-110) mg/dL Total Protein 5.5 L (6.2-8.2) g/dL Microbiology - Last 24 Hours (Table) 11/08/20 07:20 Gram Stain - Preliminary Other - Other Wound Culture - Preliminary 11/08/20 00:05 Blood Culture - Preliminary Blood No Growth after 24 hours 11/07/20 23:50 Blood Culture - Preliminary Blood No Growth after 24 hours 11/08/20 07:20 Anaerobic Culture - Preliminary Other - Other Assessment and Plan Assessment: 1. Small bowel obstruction; status post exploratory laparotomy with small bowel resection with anastomosis; POD #0 - Patient has NG tube to suctioning; we will monitor electrolytes; continue with IV fluid hydration; incentive spirometry - Continue with IV antibiotics in form of Zosyn 3.375 g IV every 8 hours 2. Severe nonischemic cardiomyopathy; patient is status post AICD - Cardiology on board; patient is currently euvolemic; compensated from cardiovascular standpoint; patient will be restarted on home medications once stable and blood pressure is improved 3. Mild renal injury/dehydration; continue with IV fluid hydration; monitor strict SILVESTRE's; monitor renal function and electrolytes 4. Hypertension; patient takes metoprolol 25 mg twice a day; blood pressure is stable; will resume home medications once oral intake is established 5. Bipolar disorder; psychiatry on board to review psych medications DVT prophylaxis; per surgery discretion CODE STATUS; full code
[2020-11-09] MEDS: QUEtiapine 50 MG TAB NG-TUBE SCH (20:59)
[2020-11-09] MEDS: METOPROLOL SUCCINATE (ER) 25 MG TAB.ER.24H PO SCH (21:00)
[2020-11-09] MEDS: OLANZapine ODT 5 MG TAB PO SCH (21:00)
[2020-11-10] MEDS: LACTATED RINGERS 1,000 ML IV SCH ×3 (05:03→18:06)
--- NOTE | 2020-11-10 06:41 | P.PN ---
Progress Note - Text Progress Note Date: 11/10/20 Postoperative day #2 status post small bowel resection ,explaretory laparotomy ,epidural catheter placed for postoperative analgesia, patient doing well epidural site okay, patient currently on combination of epidural infusion solution of Ropivacaine 0.0625% and Dilaudid 20 g per mL the infusion rate at 6 ml per hour , patient had no motor deficit epidural site okay , vital signs stable ,VAS 2 /10 , Assessment and plan= post operative day #2 patient doing well ,pain well controlled , there is no anesthesia related complications
[2020-11-10 09:16] LABS: Basophils # (A) 0.05 X 10*3/uL (0.00-0.10); Basophils % (A) 0.4 %; Eosinophils % (A) 3.5 %; HCT 38.1 % (39.6-50.0); HGB 12.2 g/dL (13.0-17.0); Lymphocytes # (A) 1.66 X 10*3/uL (0.90-5.00); Lymphocytes % (A) 14.7 %; MCH 28.5 pg (27.0-32.0); Mean Platelet Volume 10.6 fL (9.5-12.2); Monocytes # (A) 1.14 X 10*3/uL (0.20-1.00); Monocytes % (A) 10.1 %; Neutrophils # (A) 7.96 X 10*3/uL (1.80-7.70); Neutrophils % (A) 70.8 %; Platelet Count 259 X 10*3/uL (140-440); RBC 4.28 X 10*6/uL (4.40-5.60); RDW 13.8 % (11.5-14.5); WBC 11.27 X 10*3/uL (4.50-10.00)
[2020-11-10] MEDS: HEPARIN SODIUM,PORCINE 5,000 UNIT/ML 1 ML VIAL SQ SCH ×2 (09:17→18:06)
[2020-11-10] MEDS: METOPROLOL SUCCINATE (ER) 25 MG TAB.ER.24H PO SCH ×2 (09:17→21:38)
[2020-11-10] MEDS: PIPERACILLIN-TAZOBACTAM 3.375 GM in SODIUM CHLORIDE 0.9% 100 ML IVPB SCH ×2 (09:17→18:05)
[2020-11-10] MEDS: PANTOPRAZOLE 40 MG/10 ML VIAL IV SCH (09:17)
--- NOTE | 2020-11-10 09:21 | P.PN ---
Subjective Progress Note Date: 11/10/20 Patient seen and examined at bedside. States he has been ambulating and believes he has passed some flatus. Pain is well-controlled. Denies any nausea or vomiting episodes. Tolerating ice chips and popsicles. Objective - Vital Signs Vital signs: Vital Signs Temp 98.7 F 11/10/20 04:27 Pulse 99 11/10/20 04:27 Resp 18 11/10/20 04:27 BP 112/71 11/10/20 04:27 Pulse Ox 93 L 11/10/20 04:27 Intake & Output 11/09/20 11/10/20 11/10/20 18:59 06:59 18:59 Intake Total 1520 Output Total 1150 650 Balance -1150 870 Weight 101.2 kg Intake: Intake, IV Titration 1100 Amount Lactated Ringers 1,000 ml 1000 @ 125 mls/hr IV .Q8H [facility] Rx#:[id number] Piperacillin-Tazobactam 3 100 .375 gm In Sodium Chloride 0.9% 100 ml @ 25 mls/hr IVPB Q8HR [facility] Rx# :[id number] Oral 420 Output: Gastric Drainage 300 650 Urine 850 Other: Voiding Method Indwelling Catheter Indwelling Catheter # Voids 1 - Constitutional General appearance: Present: cooperative, no acute distress - Gastrointestinal Gastrointestinal Comment(s): Soft, appropriate tenderness, nondistended, no rebound, no guarding, midline incision with surgical dressing in place - Psychiatric Psychiatric: Present: A&O x's 3 - Labs CBC & Chem 7: 11/10/20 05:43 11/09/20 05:09 Labs: Abnormal Lab Results - Last 24 Hours (Table) 11/09/20 11/10/20 Range/Units 05:09 05:43 WBC 11.27 H (4.50-10.00) X 10*3/uL RBC 4.28 L (4.40-5.60) X 10*6/uL Hgb 12.2 L (13.0-17.0) g/dL Hct 38.1 L (39.6-50.0) % Immature Gran # 0.06 H (0.00-0.04) X 10*3/uL Neutrophils # 7.96 H (1.80-7.70) X 10*3/uL Monocytes # 1.14 H (0.20-1.00) X 10*3/uL Eosinophils # 0.40 H (0.04-0.35) X 10*3/uL Glucose 115 H (70-110) mg/dL Total Protein 5.5 L (6.2-8.2) g/dL Microbiology - Last 24 Hours (Table) 11/08/20 00:05 Blood Culture - Preliminary Blood No Growth after 48 hours 11/07/20 23:50 Blood Culture - Preliminary Blood No Growth after 48 hours 11/08/20 07:20 Gram Stain - Preliminary Other - Other Wound Culture - Preliminary Assessment and Plan (1) Perforated bowel Narrative/Plan: Postoperative day #2, small bowel resection 2 - Continue nasogastric tube to low intermittent suction - Await further bowel function - Keep nothing by mouth for now - Appreciate psychiatric recommendations on patient's medication - Appreciate medical recommendations - Increase activity with ambulation, this was instructed to the patient - Continue incentive spirometry - Discontinue epidural, begin when necessary pain medication - Patient is requesting a male to remove Feliz catheter. Feliz catheter will be removed tomorrow. - Progressing slowly, leukocytosis improving, continue Zosyn Current Visit: Yes Status: Acute Code(s): K63.1 - PERFORATION OF INTESTINE (NONTRAUMATIC) SNOMED Code(s): 51122137
[2020-11-10] MEDS ORDERED: HYDROmorphone 0.5 MG/0.5 ML SYRINGE IVP PRN (09:28)
[2020-11-10] MEDS ORDERED: HYDROcodone/APAP 5-325MG 1 EACH TAB PO PRN (09:30)
[2020-11-10] MEDS: LITHIUM CARBONATE 150 MG CAP NG-TUBE SCH ×2 (10:10→21:39)
--- NOTE | 2020-11-10 10:21 | P.PN ---
Subjective Progress Note Date: 11/10/20 HISTORY OF PRESENT ILLNESS: This is a 55-year-old male with a history of nonischemic cardiomyopathy and previous AICD implantation who follows with a upholstery cleaner in [place]. Patient is status post exploratory laparotomy, small bowel resection 2 with anastomosis, and ventral hernia repair secondary to pneumoperitoneum due to small bowel perforation. This was performed on [address] Kamara. Patient examined this morning the bedside. Patient continues to have an epidural and NG tube in place. He is tolerating ice chips. He denies chest pain or pressure. Denies shortness of breath. PHYSICAL EXAM: VITAL SIGNS: Reviewed. GENERAL: Well-developed in no acute distress. NECK: Supple. No JVD or thyromegaly LUNGS: Respirations even and unlabored. Lungs essentially clear to auscultation bilaterally, diminished. HEART: Regular rate and rhythm. S1 and S2 heard. EXTREMITIES: Normal range of motion. No clubbing or cyanosis. Peripheral pulses intact. No lower extremity edema ASSESSMENT: Pneumoperitoneum secondary to small bowel perforation, status post exploratory laparotomy, small bowel resection 2 with anastomosis, and ventral hernia repair History of nonischemic cardiomyopathy with previous AICD implantation Bipolar disorder PLAN: Continue postoperative surgical management per Dr. Kamara Patient has been resumed on his home dose of Toprol XL Continue to monitor heart rate and blood pressure Will resume lisinopril and lasix when appropriate Further recommendations pending patient course Nurse practitioner note has been reviewed by physician. Signing provider agrees with the documented findings, assessment, and plan of care. Objective - Vital Signs Vital signs: Vital Signs Temp 98.7 F 11/10/20 04:27 Pulse 99 11/10/20 04:27 Resp 18 11/10/20 04:27 BP 112/71 11/10/20 04:27 Pulse Ox 93 L 11/10/20 04:27 Intake & Output 11/09/20 11/10/20 11/10/20 18:59 06:59 18:59 Intake Total 1520 Output Total 1150 650 Balance -1150 870 Weight 101.2 kg Intake: Intake, IV Titration 1100 Amount Lactated Ringers 1,000 ml 1000 @ 125 mls/hr IV .Q8H [facility] Rx#:[id number] Piperacillin-Tazobactam 3 100 .375 gm In Sodium Chloride 0.9% 100 ml @ 25 mls/hr IVPB Q8HR [facility] Rx# :[id number] Oral 420 Output: Gastric Drainage 300 650 Urine 850 Other: Voiding Method Indwelling Catheter Indwelling Catheter # Voids 1 - Labs CBC & Chem 7: 11/10/20 05:43 11/09/20 05:09 Labs: Abnormal Lab Results - Last 24 Hours (Table) 11/10/20 Range/Units 05:43 WBC 11.27 H (4.50-10.00) X 10*3/uL RBC 4.28 L (4.40-5.60) X 10*6/uL Hgb 12.2 L (13.0-17.0) g/dL Hct 38.1 L (39.6-50.0) % Immature Gran # 0.06 H (0.00-0.04) X 10*3/uL Neutrophils # 7.96 H (1.80-7.70) X 10*3/uL Monocytes # 1.14 H (0.20-1.00) X 10*3/uL Eosinophils # 0.40 H (0.04-0.35) X 10*3/uL Microbiology - Last 24 Hours (Table) 11/08/20 00:05 Blood Culture - Preliminary Blood No Growth after 48 hours 11/07/20 23:50 Blood Culture - Preliminary Blood No Growth after 48 hours 11/08/20 07:20 Gram Stain - Preliminary Other - Other Wound Culture - Preliminary
--- NOTE | 2020-11-10 13:08 | P.PN ---
Subjective 55-year-old male patient with history of hypertension, severe nonischemic cardiomyopathy status post AICD presented to the ED with complaint of abdominal discomfort; patient was worked up to ER and admitted with small bowel perforation; patient underwent exploratory laparotomy with bowel resection along with omental hernia repair; patient is POD #0 Patient is seen postoperatively; requesting oral intake and removal of NG tube; patient currently has NG tube to suction 11/09/2020 Patient is seen resting comfortably in bed; reports he has been ambulating in the room since morning; pain controlled fairly well; patient has epidural in place Vital signs are reviewed with temp of 98.8, pulse 102, respiration 14 and blood pressure 112/69 with SpO2 of 93% Lab review reveals white blood count of 14.4, hemoglobin 12.2 and hematocrit of 39.1; chemical profile sodium 138, potassium 4.0, BUN/creatinine of 23/1.16 Patient has been evaluated by psych and medication adjustment has been done; cardiology on board and recommending to start patient back on Toprol-XL Subjective: 11/10/2020 This is a pleasant 55 years old male who presents with signs and symptoms of incarcerated umbilical hernia and perforated bowel status post exploratory laparotomy and hernia repair with small segmental bowel resection for surgery team. Today's postoperative day #2. Patient sitting in chair comfortable, fully awake and oriented, NG tube with yellowish aspirate in the tube. Abdomen tenderness is minimal at the surgical site which is expected. Patient still has Feliz catheter and epidural catheter with surgery team are planning to discontinue today. Once culture are still pending and currently he is on Zosyn. Hemodynamically he is a stable and no fever for more than 48 hours. WBC is trending down to 11.2. Patient is currently on Zosyn and he is getting Ringer lactate at 125 Objective - Vital Signs Vital signs: Vital Signs Temp 98.9 F 11/10/20 12:18 Pulse 86 11/10/20 12:18 Resp 18 11/10/20 12:18 BP 120/78 11/10/20 12:18 Pulse Ox 97 11/10/20 12:18 Intake & Output 11/09/20 11/10/20 11/10/20 18:59 06:59 18:59 Intake Total 1520 Output Total 1150 650 Balance -1150 870 Weight 101.2 kg Intake: Intake, IV Titration 1100 Amount Lactated Ringers 1,000 ml 1000 @ 125 mls/hr IV .Q8H [facility] Rx#:[id number] Piperacillin-Tazobactam 3 100 .375 gm In Sodium Chloride 0.9% 100 ml @ 25 mls/hr IVPB Q8HR [facility] Rx# :[id number] Oral 420 Output: Gastric Drainage 300 650 Urine 850 Other: Voiding Method Indwelling Catheter Indwelling Catheter Indwelling Catheter # Voids 1 - Exam GENERAL: The patient is alert and oriented x3, not in any acute distress. Well developed, well nourished. HEENT: Pupils are round and equally reacting to light. EOMI. No scleral icterus. No conjunctival pallor. Normocephalic, atraumatic. No pharyngeal erythema. No thyromegaly. CARDIOVASCULAR: S1 and S2 present. No murmurs, rubs, or gallops. PULMONARY: Chest is clear to auscultation, no wheezing or crackles. -ABDOMEN: Soft, nontender, nondistended, normoactive bowel sounds. No palpable organomegaly. Surgical wound is clean and closed. MUSCULOSKELETAL: No joint swelling or deformity. EXTREMITIES: No cyanosis, clubbing, or pedal edema. NEUROLOGICAL: Gross neurological examination did not reveal any focal deficits. SKIN: No rashes. no petechiae. - Labs CBC & Chem 7: 11/10/20 05:43 11/09/20 05:09 Labs: Abnormal Lab Results - Last 24 Hours (Table) 11/10/20 Range/Units 05:43 WBC 11.27 H (4.50-10.00) X 10*3/uL RBC 4.28 L (4.40-5.60) X 10*6/uL Hgb 12.2 L (13.0-17.0) g/dL Hct 38.1 L (39.6-50.0) % Immature Gran # 0.06 H (0.00-0.04) X 10*3/uL Neutrophils # 7.96 H (1.80-7.70) X 10*3/uL Monocytes # 1.14 H (0.20-1.00) X 10*3/uL Eosinophils # 0.40 H (0.04-0.35) X 10*3/uL Microbiology - Last 24 Hours (Table) 11/08/20 00:05 Blood Culture - Preliminary Blood No Growth after 48 hours 11/07/20 23:50 Blood Culture - Preliminary Blood No Growth after 48 hours Assessment and Plan Assessment: 1. Small bowel obstruction; status post exploratory laparotomy with small bowel resection with anastomosis - Patient has NG tube to suctioning; we will monitor electrolytes; continue with IV fluid hydration; incentive spirometry. - Continue with IV antibiotics in form of Zosyn 3.375 g IV every 8 hours 2. Severe nonischemic cardiomyopathy; patient is status post AICD - Cardiology on board; patient is currently euvolemic; metoprolol has been restarted 3. Mild renal injury/dehydration; continue with IV fluid hydration; monitor strict SILVESTRE's; monitor renal function and electrolytes 4. Hypertension; patient takes metoprolol 25 mg twice a day; blood pressure is stable; will resume home medications once oral intake is established 5. Bipolar disorder; psychiatry on board to review psych medications DVT prophylaxis; per surgery discretion CODE STATUS; full code
--- NOTE | 2020-11-10 15:17 | CDI ---
Documentation Clarification Form Date: 11/10/2020 02:47:53 PM From: Nu Rae RN, CCDS Admit Date: 11/08/2020 12:17:00 AM Patient Name: Luke Alfredo Visit Number: [id number] Discharge Date: ATTENTION: The Clinical Documentation Specialists (CDI) and [facility] Coding Staff appreciate your assistance in clarifying documentation. Please respond to the clarification below the line at the bottom and electronically sign. The CDI & [facility] Coding staff will review the response and follow-up if needed. Please note: Queries are made part of the Legal Health Record. If you have any questions, please contact the author of this message via ITS. Dr. Ferny Shaffer Mild renal injury was documented in the medical consult on 11/08 and subsequent progress notes. Please further specify the acuity of the renal injury. History/Risk Factors: Abdominal hernia Clinical Indicators: 55-year-old male with present on 11/07 with complaints of abdominal pain. he was ruled for 11/07 BUN 23, CR 1.16, GFR 72 11/09BUN 18.0 CR 1.1, GFR 75.6 Treatment: .9NS at 130 mls/hr IV 11/08 Monitor strict I/O Monitor renal function Electrolytes daily In order to capture the severity of condition, please clarify if the condition mild renal injury signifies: Acute kidney injury Renal injury ruled out Other, please specify Unable to determine (Last Revision: December 2017) no alfa MTDD
[2020-11-10] MEDS: KETOROLAC 15 MG/ML 1 ML VIAL IVP SCH (18:05)
[2020-11-10] MEDS: OLANZapine ODT 5 MG TAB PO SCH (21:39)
[2020-11-10] MEDS: QUEtiapine 50 MG TAB NG-TUBE SCH (21:39)
[2020-11-11] MEDS: HEPARIN SODIUM,PORCINE 5,000 UNIT/ML 1 ML VIAL SQ SCH ×3 (00:02→15:56)
[2020-11-11] MEDS: KETOROLAC 15 MG/ML 1 ML VIAL IVP SCH ×4 (00:02→18:19)
[2020-11-11] MEDS: PIPERACILLIN-TAZOBACTAM 3.375 GM in SODIUM CHLORIDE 0.9% 100 ML IVPB SCH ×3 (00:02→15:56)
[2020-11-11] MEDS: LACTATED RINGERS 1,000 ML IV SCH ×3 (03:20→18:19)
[2020-11-11 07:32] LABS: Basophils % (A) 0 %; Eosinophils # (A) 0.4 k/uL (0-0.7); Eosinophils % (A) 4 %; HCT 40.5 % (39.0-53.0); HGB 13.5 gm/dL (13.0-17.5); Lymphocytes # (A) 1.2 k/uL (1.0-4.8); Lymphocytes % (A) 11 %; MCH 28.8 pg (25.0-35.0); MCHC 33.4 g/dL (31.0-37.0); MCV 86.2 fL (80.0-100.0); Mean Platelet Volume 7.6; Monocytes # (A) 0.7 k/uL (0-1.0); Monocytes % (A) 6 %; Neutrophils # (A) 9.1 k/uL (1.3-7.7); Neutrophils % (A) 79 %; Platelet Count 275 k/uL (150-450); RDW 13.1 % (11.5-15.5); WBC 11.6 k/uL (3.8-10.6)
[2020-11-11] MEDS: METOPROLOL SUCCINATE (ER) 25 MG TAB.ER.24H PO SCH ×2 (07:43→21:49)
[2020-11-11] MEDS: PANTOPRAZOLE 40 MG/10 ML VIAL IV SCH (07:43)
[2020-11-11] MEDS: LITHIUM CARBONATE 150 MG CAP NG-TUBE SCH ×2 (07:43→21:49)
[2020-11-11] MEDS ORDERED: BENZOCAINE SPRAY 1 CAN MUCOUS MEM PRN (08:54)
--- NOTE | 2020-11-11 11:05 | P.PN ---
Subjective Progress Note Date: 11/11/20 HISTORY OF PRESENT ILLNESS: 11/10/2020 This is a 55-year-old male with a history of nonischemic cardiomyopathy and previous AICD implantation who follows with a office technician in [place]. Patient is status post exploratory laparotomy, small bowel resection 2 with anastomosis, and ventral hernia repair secondary to pneumoperitoneum due to small bowel perforation. This was performed on 11/08/[address] Kamara. Patient examined this morning the bedside. Patient continues to have an epidural and NG tube in place. He is tolerating ice chips. He denies chest pain or pressure. Denies shortness of breath. 11/11/2020 Patient examined this morning at bedside. He reports nausea and episode of emesis this morning. He continues to have an NG tube to low intermittent suction. He denies chest pain or pressure. Denies shortness of breath. He is tolerating ice chips and popsicles. PHYSICAL EXAM: VITAL SIGNS: Reviewed. GENERAL: Well-developed in no acute distress. NECK: Supple. No JVD or thyromegaly LUNGS: Respirations even and unlabored. Lungs essentially clear to auscultation bilaterally, diminished. HEART: Regular rate and rhythm. S1 and S2 heard. EXTREMITIES: Normal range of motion. No clubbing or cyanosis. Peripheral pulses intact. No lower extremity edema ASSESSMENT: Pneumoperitoneum secondary to small bowel perforation, status post exploratory laparotomy, small bowel resection 2 with anastomosis, and ventral hernia repair History of nonischemic cardiomyopathy with previous AICD implantation Bipolar disorder PLAN: Continue postoperative surgical management per Dr. Kamara Continue current dose of Toprol XL Continue to monitor heart rate and blood pressure Will resume lisinopril and lasix when appropriate Further recommendations pending patient course Nurse practitioner note has been reviewed by physician. Signing provider agrees with the documented findings, assessment, and plan of care. Objective - Vital Signs Vital signs: Vital Signs Temp 99.0 F 11/11/20 08:59 Pulse 104 H 11/11/20 08:59 Resp 16 11/11/20 08:59 BP 130/88 11/11/20 08:59 Pulse Ox 94 L 11/11/20 08:59 Intake & Output 11/10/20 11/11/20 11/11/20 18:59 06:59 18:59 Intake Total 1732 1300 Output Total 900 Balance 1732 400 Intake: Intake, IV Titration 1732 1300 Amount Lactated Ringers 1,000 ml 1500 1200 @ 125 mls/hr IV .Q8H [facility] Rx#:[id number] Piperacillin-Tazobactam 3 100 100 .375 gm In Sodium Chloride 0.9% 100 ml @ 25 mls/hr IVPB Q8HR [facility] Rx# :[id number] Ropivacaine 250 mg 132 Hydromorphone (Pf) 5 mg In Sodium Chloride 0.9% 200 ml @ Per Protocol EPIDURAL .Q0M [facility] Rx#: [id number] Output: Gastric Drainage 200 Urine 700 Other: Voiding Method Indwelling Catheter Indwelling Catheter Indwelling Catheter - Labs CBC & Chem 7: 11/11/20 06:33 11/09/20 05:09 Labs: Abnormal Lab Results - Last 24 Hours (Table) 11/11/20 Range/Units 06:33 WBC 11.6 H (3.8-10.6) k/uL Neutrophils # 9.1 H (1.3-7.7) k/uL Microbiology - Last 24 Hours (Table) 11/08/20 00:05 Blood Culture - Preliminary Blood No Growth after 72 hours 11/07/20 23:50 Blood Culture - Preliminary Blood No Growth after 72 hours 11/08/20 07:20 Anaerobic Culture - Preliminary Other - Other 11/08/20 07:20 Gram Stain - Final Other - Other Wound Culture - Final
--- NOTE | 2020-11-11 17:33 | P.PN ---
Subjective Progress Note Date: 11/11/20 Patient seen and examined at bedside. States that he had multiple bilious vomiting episodes this morning and according to nursing, nasogastric tube somehow became on hooked to wall suction during the time. That led up to the vomiting. He once the suction was replaced, 600 cc of bilious fluid was drained. Currently, the patient states he is feeling better. He is stating he is having flatus. His is at bedside. Objective - Vital Signs Vital signs: Vital Signs Temp 99.0 F 11/11/20 14:11 Pulse 93 11/11/20 14:11 Resp 18 11/11/20 14:11 BP 135/82 11/11/20 14:11 Pulse Ox 94 L 11/11/20 14:11 Intake & Output 11/10/20 11/11/20 11/11/20 18:59 06:59 18:59 Intake Total 1732 1300 Output Total 900 Balance 1732 400 Intake: Intake, IV Titration 1732 1300 Amount Lactated Ringers 1,000 ml 1500 1200 @ 125 mls/hr IV .Q8H [facility] Rx#:[id number] Piperacillin-Tazobactam 3 100 100 .375 gm In Sodium Chloride 0.9% 100 ml @ 25 mls/hr IVPB Q8HR [facility] Rx# :[id number] Ropivacaine 250 mg 132 Hydromorphone (Pf) 5 mg In Sodium Chloride 0.9% 200 ml @ Per Protocol EPIDURAL .Q0M [facility] Rx#: [id number] Output: Gastric Drainage 200 Urine 700 Other: Voiding Method Indwelling Catheter Indwelling Catheter Indwelling Catheter - Constitutional General appearance: Present: cooperative, no acute distress - Gastrointestinal Gastrointestinal Comment(s): Soft, nontender, mildly distended, no rebound, no guarding, midline incision clean, dry and intact - Psychiatric Psychiatric: Present: A&O x's 3 - Labs CBC & Chem 7: 11/11/20 06:33 11/09/20 05:09 Labs: Abnormal Lab Results - Last 24 Hours (Table) 11/11/20 Range/Units 06:33 WBC 11.6 H (3.8-10.6) k/uL Neutrophils # 9.1 H (1.3-7.7) k/uL Microbiology - Last 24 Hours (Table) 11/08/20 00:05 Blood Culture - Preliminary Blood No Growth after 72 hours 11/07/20 23:50 Blood Culture - Preliminary Blood No Growth after 72 hours 11/08/20 07:20 Anaerobic Culture - Preliminary Other - Other 11/08/20 07:20 Gram Stain - Final Other - Other Wound Culture - Final Assessment and Plan (1) Perforated bowel Narrative/Plan: Postoperative day #3, small bowel resection 2 - Continue nasogastric tube to low intermittent suction, We will hold off on ice chips and popsicles at this time due to significant amount of drainage from nasogastric tube and bilious vomiting. - Await further bowel function - Keep nothing by mouth for now - Appreciate psychiatric recommendations on patient's medication - Appreciate medical recommendations - Increase activity with ambulation, this was instructed to the patient - Continue incentive spirometry - Continue pain control - Feliz removed - Patient's is at bedside and is requesting that TV is unplugged along with no sugar given to the patient as this aggravates his bipolar disease. The patient has denied that this is the case. There does appear to be a disagreement between the and in this case. Social work is involved along with psychiatry due to the patient's history of bipolar disease. The patient himself is requesting continued TV privileges and we will continue to treat the patient's requests unless otherwise dictated by psychiatry. Nursing staff has also mentioned multiple phone calls to the nursing desk and arguments with nursing staff and pathology secretary by the over the past 2 days. Current Visit: Yes Status: Acute Code(s): K63.1 - PERFORATION OF INTESTINE (NONTRAUMATIC) SNOMED Code(s): 05121206
--- NOTE | 2020-11-11 21:10 | P.PN ---
Subjective 55-year-old male patient with history of hypertension, severe nonischemic cardiomyopathy status post AICD presented to the ED with complaint of abdominal discomfort; patient was worked up to ER and admitted with small bowel perforation; patient underwent exploratory laparotomy with bowel resection along with omental hernia repair; patient is POD #0 Patient is seen postoperatively; requesting oral intake and removal of NG tube; patient currently has NG tube to suction 11/09/2020 Patient is seen resting comfortably in bed; reports he has been ambulating in the room since morning; pain controlled fairly well; patient has epidural in place Vital signs are reviewed with temp of 98.8, pulse 102, respiration 14 and blood pressure 112/69 with SpO2 of 93% Lab review reveals white blood count of 14.4, hemoglobin 12.2 and hematocrit of 39.1; chemical profile sodium 138, potassium 4.0, BUN/creatinine of 23/1.16 Patient has been evaluated by psych and medication adjustment has been done; cardiology on board and recommending to start patient back on Toprol-XL Subjective: 11/10/2020 This is a pleasant 55 years old male who presents with signs and symptoms of incarcerated umbilical hernia and perforated bowel status post exploratory laparotomy and hernia repair with small segmental bowel resection for surgery team. Today's postoperative day #2. Patient sitting in chair comfortable, fully awake and oriented, NG tube with yellowish aspirate in the tube. Abdomen tenderness is minimal at the surgical site which is expected. Patient still has Feliz catheter and epidural catheter with surgery team are planning to discontinue today. Once culture are still pending and currently he is on Zosyn. Hemodynamically he is a stable and no fever for more than 48 hours. WBC is trending down to 11.2. Patient is currently on Zosyn and he is getting Ringer lactate at 125 11/11/2020 Patient is awake, comfortable not in distress. He has NG tube with greenish-yellowish discharge Minimal abdominal pain When I saw the patient in the morning is still have Feliz catheter and epidural with plan to be DC'd today Wound culture came back negative and patient remains on Zosyn. Labs showing mild leukocytosis which is stable at 11 K. Objective - Vital Signs Vital signs: Vital Signs Temp 99.0 F 11/11/20 08:59 Pulse 104 H 11/11/20 08:59 Resp 16 11/11/20 10:54 BP 130/88 02/23/21 08:59 Pulse Ox 94 L 11/11/20 08:59 Intake & Output 11/10/20 11/11/20 11/11/20 18:59 06:59 18:59 Intake Total 1732 1300 Output Total 900 Balance 1732 400 Intake: Intake, IV Titration 173 1300 Amount Lactated Ringers 1,000 ml 1500 1200 @ 125 mls/hr IV .Q8H [facility] Rx#:[id number] Piperacillin-Tazobactam 3 100 100 .375 gm In Sodium Chloride 0.9% 100 ml @ 25 mls/hr IVPB Q8HR [facility] Rx# :[id number] Ropivacaine 250 mg 132 Hydromorphone (Pf) 5 mg In Sodium Chloride 0.9% 200 ml @ Per Protocol EPIDURAL .Q0M [facility] Rx#: [id number] Output: Gastric Drainage 200 Urine 700 Other: Voiding Method Indwelling Catheter Indwelling Catheter Indwelling Catheter - Exam GENERAL: The patient is alert and oriented x3, not in any acute distress. Well developed, well nourished. HEENT: Pupils are round and equally reacting to light. EOMI. No scleral icterus. No conjunctival pallor. Normocephalic, atraumatic. No pharyngeal erythema. No thyromegaly. CARDIOVASCULAR: S1 and S2 present. No murmurs, rubs, or gallops. PULMONARY: Chest is clear to auscultation, no wheezing or crackles. -ABDOMEN: Soft, nontender, nondistended, normoactive bowel sounds. No palpable organomegaly. Surgical wound is clean and closed. MUSCULOSKELETAL: No joint swelling or deformity. EXTREMITIES: No cyanosis, clubbing, or pedal edema. NEUROLOGICAL: Gross neurological examination did not reveal any focal deficits. SKIN: No rashes. no petechiae. - Labs CBC & Chem 7: 11/11/20 06:33 11/09/20 05:09 Labs: Abnormal Lab Results - Last 24 Hours (Table) 11/11/20 Range/Units 06:33 WBC 11.6 H (3.8-10.6) k/uL Neutrophils # 9.1 H (1.3-7.7) k/uL Microbiology - Last 24 Hours (Table) 11/08/20 00:05 Blood Culture - Preliminary Blood No Growth after 72 hours 11/07/20 23:50 Blood Culture - Preliminary Blood No Growth after 72 hours 11/08/20 07:20 Anaerobic Culture - Preliminary Other - Other 11/08/20 07:20 Gram Stain - Final Other - Other Wound Culture - Final Assessment and Plan Assessment: 1. Small bowel obstruction; status post exploratory laparotomy with small bowel resection with anastomosis - Patient has NG tube to suctioning; we will monitor electrolytes; continue with IV fluid hydration; incentive spirometry. - Continue with IV antibiotics in form of Zosyn 3.375 g IV every 8 hours 2. Severe nonischemic cardiomyopathy; patient is status post AICD - Cardiology on board; patient is currently euvolemic; metoprolol has been restarted 3. Mild renal injury/dehydration; continue with IV fluid hydration; monitor strict SILVESTRE's; monitor renal function and electrolytes 4. Hypertension; patient takes metoprolol 25 mg twice a day; blood pressure is stable; will resume home medications once oral intake is established 5. Bipolar disorder; psychiatry on board to review psych medications Thank you for consulting us and Dr. Kamara DVT prophylaxis; subcu heparin CODE STATUS; full code
[2020-11-11] MEDS: OLANZapine ODT 5 MG TAB PO SCH (21:50)
[2020-11-11] MEDS: QUEtiapine 50 MG TAB NG-TUBE SCH (21:51)
[2020-11-12] MEDS: PIPERACILLIN-TAZOBACTAM 3.375 GM in SODIUM CHLORIDE 0.9% 100 ML IVPB SCH ×3 (00:16→16:03)
[2020-11-12] MEDS: KETOROLAC 15 MG/ML 1 ML VIAL IVP SCH ×4 (00:21→17:19)
[2020-11-12] MEDS: HEPARIN SODIUM,PORCINE 5,000 UNIT/ML 1 ML VIAL SQ SCH ×3 (00:25→16:03)
[2020-11-12] MEDS: LACTATED RINGERS 1,000 ML IV SCH ×3 (03:48→21:14)
[2020-11-12] MEDS: LITHIUM CARBONATE 150 MG CAP NG-TUBE SCH ×2 (07:34→21:14)
[2020-11-12] MEDS: METOPROLOL SUCCINATE (ER) 25 MG TAB.ER.24H PO SCH ×2 (07:35→21:14)
[2020-11-12] MEDS: PANTOPRAZOLE 40 MG/10 ML VIAL IV SCH (07:46)
--- NOTE | 2020-11-12 08:01 | P.PN ---
Subjective Progress Note Date: 11/12/20 Patient seen and examined at bedside. States he had a restful night. Denied any nausea or vomiting. After initial 600 mL of output after fixing is a gastric tube yesterday morning, he had 500 mL over the last 24 hours. He states he is having more flatus. Objective - Vital Signs Vital signs: Vital Signs Temp 98.0 F 11/12/20 07:47 Pulse 77 11/12/20 07:47 Resp 18 11/12/20 07:47 BP 120/74 11/12/20 07:47 Pulse Ox 94 L 11/12/20 07:47 Intake & Output 11/11/20 11/12/20 11/12/20 18:59 06:59 18:59 Intake Total 1600 Output Total 600 1200 Balance -600 400 Weight 102.6 kg Intake: Intake, IV Titration 1600 Amount Lactated Ringers 1,000 ml 1500 @ 125 mls/hr IV .Q8H [facility] Rx#:[id number] Piperacillin-Tazobactam 3 100 .375 gm In Sodium Chloride 0.9% 100 ml @ 25 mls/hr IVPB Q8HR [facility] Rx# :[id number] Output: Gastric Drainage 600 500 Urine 700 Other: Voiding Method Indwelling Catheter Toilet Urinal # Voids 2 - Constitutional General appearance: Present: cooperative, no acute distress - Gastrointestinal Gastrointestinal Comment(s): Soft, appropriate tenderness, distention improving, no rebound, no guarding, midline incision clean, dry and intact - Psychiatric Psychiatric: Present: A&O x's 3 - Labs CBC & Chem 7: 11/11/20 06:33 11/09/20 05:09 Labs: Microbiology - Last 24 Hours (Table) 11/08/20 00:05 Blood Culture - Preliminary Blood No Growth after 96 hours 11/07/20 23:50 Blood Culture - Preliminary Blood No Growth after 96 hours Assessment and Plan (1) Perforated bowel Narrative/Plan: Postoperative day #4, small bowel resection 2 - Patient continues to have increased amount of flatus, will clamp NG tube and start the patient on a trial of clear liquids - Appreciate psychiatric recommendations on patient's medication - Appreciate medical recommendations - Increase activity with ambulation, this was instructed to the patient - Continue incentive spirometry - Continue pain control - Feliz removed - 11/11 Patient's is at bedside and is requesting that TV is unplugged along with no sugar given to the patient as this aggravates his bipolar disease. The patient has denied that this is the case. There does appear to be a disagreement between the and in this case. Social work is involved along with psychiatry due to the patient's history of bipolar disease. The patient himself is requesting continued TV privileges and we will continue to treat the patient's requests unless otherwise dictated by psychiatry. Nursing staff has also mentioned multiple phone calls to the nursing desk and arguments with nursing staff and litigation legal secretary by the over the past 2 days. Current Visit: Yes Status: Acute Code(s): K63.1 - PERFORATION OF INTESTINE (NONTRAUMATIC) SNOMED Code(s): 34288632
[2020-11-12 09:21] LABS: Basophils # (A) 0.05 X 10*3/uL (0.00-0.10); Basophils % (A) 0.6 %; Eosinophils # (A) 0.52 X 10*3/uL (0.04-0.35); Eosinophils % (A) 6.7 %; HCT 35.1 % (39.6-50.0); HGB 11.2 g/dL (13.0-17.0); Lymphocytes # (A) 1.39 X 10*3/uL (0.90-5.00); MCH 28.5 pg (27.0-32.0); MCHC 31.9 g/dL (32.0-37.0); MCV 89.3 fL (80.0-97.0); Mean Platelet Volume 10.2 fL (9.5-12.2); Monocytes # (A) 0.67 X 10*3/uL (0.20-1.00); Monocytes % (A) 8.7 %; Neutrophils # (A) 5.03 X 10*3/uL (1.80-7.70); Neutrophils % (A) 65.2 %; Platelet Count 254 X 10*3/uL (140-440); RBC 3.93 X 10*6/uL (4.40-5.60); RDW 13.2 % (11.5-14.5); WBC 7.72 X 10*3/uL (4.50-10.00)
--- NOTE | 2020-11-12 09:24 | P.PN ---
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 Patient is status post exploratory laparotomy, small bowel resection 2 with anastomosis, and ventral hernia repair secondary to pneumoperitoneum due to small bowel perforation. This was performed on 11/08/[address] Kamara. Patient examined this morning the bedside. Patient continues to have an epidural and NG tube in place. He is tolerating ice chips. He denies chest pain or pressure. Denies shortness of breath. 11/11/2020 Patient examined this morning at bedside. He reports nausea and episode of emesis this morning. He continues to have an NG tube to low intermittent suction. He denies chest pain or pressure. Denies shortness of breath. He is tolerating ice chips and popsicles. 11/12/2020 Patient examined this morning. He denies chest pain or pressure. Denies shortness of breath. Patients NG is currently clamped and he is going to trial clear liquids per surgery. Blood pressure 120/74. Heart rate in the 70s. PHYSICAL EXAM: VITAL SIGNS: Reviewed. GENERAL: Well-developed in no acute distress. NECK: Supple. No JVD or thyromegaly LUNGS: Respirations even and unlabored. Lungs essentially clear to auscultation bilaterally, diminished. HEART: Regular rate and rhythm. S1 and S2 heard. EXTREMITIES: Normal range of motion. No clubbing or cyanosis. Peripheral pulses intact. No lower extremity edema ASSESSMENT: Pneumoperitoneum secondary to small bowel perforation, status post exploratory laparotomy, small bowel resection 2 with anastomosis, and ventral hernia repair History of nonischemic cardiomyopathy with previous AICD implantation Bipolar disorder PLAN: Continue postoperative surgical management per Dr. Kamara Continue current dose of Toprol XL Continue to monitor heart rate and blood pressure Will resume lisinopril and diuretics tomorrow morning Further recommendations pending patient course Nurse practitioner note has been reviewed by physician. Signing provider agrees with the documented findings, assessment, and plan of care. Objective - Vital Signs Vital signs: Vital Signs Temp 98.0 F 11/12/20 07:47 Pulse 77 11/12/20 07:47 Resp 18 11/12/20 07:47 BP 120/74 11/12/20 07:47 Pulse Ox 94 L 11/12/20 07:47 Intake & Output 11/11/20 11/12/20 11/12/20 18:59 06:59 18:59 Intake Total 1600 Output Total 600 1200 Balance -600 400 Weight 102.6 kg Intake: Intake, IV Titration 1600 Amount Lactated Ringers 1,000 ml 1500 @ 125 mls/hr IV .Q8H [facility] Rx#:[id number] Piperacillin-Tazobactam 3 100 .375 gm In Sodium Chloride 0.9% 100 ml @ 25 mls/hr IVPB Q8HR [facility] Rx# :[id number] Output: Gastric Drainage 600 500 Urine 700 Other: Voiding Method Indwelling Catheter Toilet Urinal # Voids 2 - Labs CBC & Chem 7: 11/11/20 06:33 11/09/20 05:09 Labs: Microbiology - Last 24 Hours (Table) 11/08/20 00:05 Blood Culture - Preliminary Blood No Growth after 96 hours 11/07/20 23:50 Blood Culture - Preliminary Blood No Growth after 96 hours
[2020-11-12 09:44] LABS: African American GFR (CKD) 98.5 (60.0-200.0); Albumin 3.2 g/dL (3.80-4.90); Albumin/Globulin Ratio 2.13 (1.60-3.17); Anion Gap 7.5 mmol/L (4.00-12.00); Calcium 8.2 mg/dL (8.7-10.3); Carbon Dioxide 27.5 mmol/L (21.6-31.8); Globulin 1.5 g/dL (1.6-3.3); Non-African American GFR(CKD) 84.9 (60.0-200.0); Potassium 3.5 mmol/L (3.5-5.5); Total Bilirubin 0.5 mg/dL (0.2-1.2); Total Protein 4.7 g/dL (6.2-8.2)
--- NOTE | 2020-11-12 12:07 | P.PN ---
Subjective 55-year-old male patient with history of hypertension, severe nonischemic cardiomyopathy status post AICD presented to the ED with complaint of abdominal discomfort; patient was worked up to ER and admitted with small bowel perforation; patient underwent exploratory laparotomy with bowel resection along with omental hernia repair; patient is POD #0 Patient is seen postoperatively; requesting oral intake and removal of NG tube; patient currently has NG tube to suction 11/09/2020 Patient is seen resting comfortably in bed; reports he has been ambulating in the room since morning; pain controlled fairly well; patient has epidural in place Vital signs are reviewed with temp of 98.8, pulse 102, respiration 14 and blood pressure 112/69 with SpO2 of 93% Lab review reveals white blood count of 14.4, hemoglobin 12.2 and hematocrit of 39.1; chemical profile sodium 138, potassium 4.0, BUN/creatinine of 23/1.16 Patient has been evaluated by psych and medication adjustment has been done; cardiology on board and recommending to start patient back on Toprol-XL Subjective: 11/10/2020 This is a pleasant 55 years old male who presents with signs and symptoms of incarcerated umbilical hernia and perforated bowel status post exploratory laparotomy and hernia repair with small segmental bowel resection for surgery team. Today's postoperative day #2. Patient sitting in chair comfortable, fully awake and oriented, NG tube with yellowish aspirate in the tube. Abdomen tenderness is minimal at the surgical site which is expected. Patient still has Feliz catheter and epidural catheter with surgery team are planning to discontinue today. Once culture are still pending and currently he is on Zosyn. Hemodynamically he is a stable and no fever for more than 48 hours. WBC is trending down to 11.2. Patient is currently on Zosyn and he is getting Ringer lactate at 125 11/11/2020 Patient is awake, comfortable not in distress. He has NG tube with greenish-yellowish discharge Minimal abdominal pain When I saw the patient in the morning is still have Feliz catheter and epidural with plan to be DC'd today Wound culture came back negative and patient remains on Zosyn. Labs showing mild leukocytosis which is stable at 11 K. 11/12/2020 He has minimal discharge from NG tube today which was clipped and provided him with water and ice chips to see if he can tolerate that and then NG tube can be discontinued later on today per Surgery team recommendation Minimal abdominal pain. Feliz catheter was discontinued and patient is able to be with no problem. Epidural cath was removed as well and pain is controlled. Objective - Vital Signs Vital signs: Vital Signs Temp 98.0 F 11/12/20 07:47 Pulse 77 11/12/20 09:29 Resp 18 11/12/20 07:47 BP 120/74 11/12/20 07:47 Pulse Ox 94 L 11/12/20 07:47 Intake & Output 11/11/20 11/12/20 11/12/20 18:59 06:59 18:59 Intake Total 1600 Output Total 600 1200 Balance -600 400 Weight 102.6 kg Intake: Intake, IV Titration 1600 Amount Lactated Ringers 1,000 ml 1500 @ 125 mls/hr IV .Q8H [facility] Rx#:[id number] Piperacillin-Tazobactam 3 100 .375 gm In Sodium Chloride 0.9% 100 ml @ 25 mls/hr IVPB Q8HR [facility] Rx# :[id number] Output: Gastric Drainage 600 500 Urine 700 Other: Voiding Method Indwelling Catheter Toilet Toilet Urinal Urinal # Voids 2 - Exam GENERAL: The patient is alert and oriented x3, not in any acute distress. Well developed, well nourished. HEENT: Pupils are round and equally reacting to light. EOMI. No scleral icterus. No conjunctival pallor. Normocephalic, atraumatic. No pharyngeal erythema. No thyromegaly. CARDIOVASCULAR: S1 and S2 present. No murmurs, rubs, or gallops. PULMONARY: Chest is clear to auscultation, no wheezing or crackles. -ABDOMEN: Soft, nontender, nondistended, normoactive bowel sounds. No palpable organomegaly. Surgical wound is clean and closed. MUSCULOSKELETAL: No joint swelling or deformity. EXTREMITIES: No cyanosis, clubbing, or pedal edema. NEUROLOGICAL: Gross neurological examination did not reveal any focal deficits. SKIN: No rashes. no petechiae. - Labs CBC & Chem 7: 11/12/20 04:15 11/12/20 04:15 Labs: Abnormal Lab Results - Last 24 Hours (Table) 11/12/20 11/12/20 Range/Units 04:15 04:15 RBC 3.93 L (4.40-5.60) X 10*6/uL Hgb 11.2 L (13.0-17.0) g/dL Hct 35.1 L (39.6-50.0) % MCHC 31.9 L (32.0-37.0) g/dL Immature Gran # 0.06 H (0.00-0.04) X 10*3/uL Eosinophils # 0.52 H (0.04-0.35) X 10*3/uL Calcium 8.2 L (8.7-10.3) mg/dL Alkaline Phosphatase 36 L (41-126) U/L Total Protein 4.7 L (6.2-8.2) g/dL Albumin 3.20 L (3.80-4.90) g/dL Globulin 1.5 L (1.6-3.3) g/dL Microbiology - Last 24 Hours (Table) 11/08/20 00:05 Blood Culture - Preliminary Blood No Growth after 96 hours 11/07/20 23:50 Blood Culture - Preliminary Blood No Growth after 96 hours Assessment and Plan Assessment: 1. Small bowel obstruction; status post exploratory laparotomy with small bowel resection with anastomosis - Patient has NG tube to suctioning; we will monitor electrolytes; continue with IV fluid hydration; incentive spirometry. - Continue with IV antibiotics in form of Zosyn 3.375 g IV every 8 hours 2. Severe nonischemic cardiomyopathy; patient is status post AICD - Cardiology on board; patient is currently euvolemic; metoprolol has been restarted 3. Mild renal injury/dehydration; continue with IV fluid hydration; monitor strict SILVESTRE's; monitor renal function and electrolytes 4. Hypertension; patient takes metoprolol 25 mg twice a day; blood pressure is stable; will resume home medications once oral intake is established 5. Bipolar disorder; psychiatry on board to review psych medications Thank you for consulting us and Dr. Kamara DVT prophylaxis; subcu heparin CODE STATUS; full code
[2020-11-12 14:31] VITALS: BMI 28.3
[2020-11-12] MEDS: QUEtiapine 50 MG TAB NG-TUBE SCH (21:14)
[2020-11-12] MEDS: OLANZapine ODT 5 MG TAB PO SCH (21:14)
[2020-11-13] MEDS: PIPERACILLIN-TAZOBACTAM 3.375 GM in SODIUM CHLORIDE 0.9% 100 ML IVPB SCH ×3 (00:18→17:17)
[2020-11-13] MEDS: HEPARIN SODIUM,PORCINE 5,000 UNIT/ML 1 ML VIAL SQ SCH ×3 (00:18→17:18)
[2020-11-13] MEDS: KETOROLAC 15 MG/ML 1 ML VIAL IVP SCH ×4 (00:19→17:17)
[2020-11-13] MEDS: LACTATED RINGERS 1,000 ML IV SCH ×3 (04:10→22:27)
[2020-11-13] MEDS: PANTOPRAZOLE 40 MG/10 ML VIAL IV SCH (09:10)
[2020-11-13] MEDS: FUROSEMIDE 20 MG TAB PO SCH (09:12)
[2020-11-13] MEDS: LITHIUM CARBONATE 150 MG CAP NG-TUBE SCH ×2 (09:13→22:11)
[2020-11-13] MEDS: SPIRONOLACTONE 25 MG TAB PO SCH ×2 (09:13→22:12)
[2020-11-13] MEDS: METOPROLOL SUCCINATE (ER) 25 MG TAB.ER.24H PO SCH ×2 (09:14→22:11)
--- NOTE | 2020-11-13 11:13 | P.PN ---
Subjective Progress Note Date: 11/13/20 HISTORY OF PRESENT ILLNESS: 11/10/2020 This is a 55-year-old male with a history of nonischemic cardiomyopathy and previous AICD implantation who follows with a b2b sales representative in [place]. Patient is status post exploratory laparotomy, small bowel resection 2 with anastomosis, and ventral hernia repair secondary to pneumoperitoneum due to small bowel perforation. This was performed on 11/08/[address] Kamara. Patient examined this morning the bedside. Patient continues to have an epidural and NG tube in place. He is tolerating ice chips. He denies chest pain or pressure. Denies shortness of breath. 11/11/2020 Patient examined this morning at bedside. He reports nausea and episode of emesis this morning. He continues to have an NG tube to low intermittent suction. He denies chest pain or pressure. Denies shortness of breath. He is tolerating ice chips and popsicles. 11/12/2020 Patient examined this morning. He denies chest pain or pressure. Denies shortness of breath. Patients NG is currently clamped and he is going to trial clear liquids per surgery. Blood pressure 120/74. Heart rate in the 70s. 11/13/2020 Patient examined this morning. He is sitting up in the chair. NG tube has been removed. Patient is tolerating clear liquids. IV fluids are infusing at 125cc/hr. PHYSICAL EXAM: VITAL SIGNS: Reviewed. GENERAL: Well-developed in no acute distress. NECK: Supple. No JVD or thyromegaly LUNGS: Respirations even and unlabored. Lungs essentially clear to auscultation bilaterally, diminished. HEART: Regular rate and rhythm. S1 and S2 heard. EXTREMITIES: Normal range of motion. No clubbing or cyanosis. Peripheral pulses intact. No lower extremity edema ASSESSMENT: Pneumoperitoneum secondary to small bowel perforation, status post exploratory laparotomy, small bowel resection 2 with anastomosis, and ventral hernia repair History of nonischemic cardiomyopathy with previous AICD implantation Bipolar disorder PLAN: Continue postoperative surgical management per Dr. Kamara Continue current cardiac medications Decrease IV fluids to 50cc/hr due to history of cardiomyopathy Further recommendations pending patient course Nurse practitioner note has been reviewed by physician. Signing provider agrees with the documented findings, assessment, and plan of care. Objective - Vital Signs Vital signs: Vital Signs Temp 98.0 F 11/13/20 05:00 Pulse 71 11/13/20 05:00 Resp 16 11/13/20 05:00 BP 107/64 11/13/20 05:00 Pulse Ox 96 11/13/20 05:00 Intake & Output 11/12/20 11/13/20 11/13/20 18:59 06:59 18:59 Intake Total 950 Balance 950 Weight 102.6 kg 102.9 kg Intake: Oral 950 Other: Voiding Method Toilet Urinal # Voids 2 # Bowel Movements 0 - Labs CBC & Chem 7: 11/12/20 04:15 11/12/20 04:15 Labs: Microbiology - Last 24 Hours (Table) 11/08/20 00:05 Blood Culture - Preliminary Blood No Growth after 120 hours 11/07/20 23:50 Blood Culture - Preliminary Blood No Growth after 120 hours 11/08/20 07:20 Anaerobic Culture - Final Other - Other
--- NOTE | 2020-11-13 12:21 | P.PN ---
Subjective 55-year-old male patient with history of hypertension, severe nonischemic cardiomyopathy status post AICD presented to the ED with complaint of abdominal discomfort; patient was worked up to ER and admitted with small bowel perforation; patient underwent exploratory laparotomy with bowel resection along with omental hernia repair; patient is POD #0 Patient is seen postoperatively; requesting oral intake and removal of NG tube; patient currently has NG tube to suction 11/09/2020 Patient is seen resting comfortably in bed; reports he has been ambulating in the room since morning; pain controlled fairly well; patient has epidural in place Vital signs are reviewed with temp of 98.8, pulse 102, respiration 14 and blood pressure 112/69 with SpO2 of 93% Lab review reveals white blood count of 14.4, hemoglobin 12.2 and hematocrit of 39.1; chemical profile sodium 138, potassium 4.0, BUN/creatinine of 23/1.16 Patient has been evaluated by psych and medication adjustment has been done; cardiology on board and recommending to start patient back on Toprol-XL Subjective: 11/10/2020 This is a pleasant 55 years old male who presents with signs and symptoms of incarcerated umbilical hernia and perforated bowel status post exploratory laparotomy and hernia repair with small segmental bowel resection for surgery team. Today's postoperative day #2. Patient sitting in chair comfortable, fully awake and oriented, NG tube with yellowish aspirate in the tube. Abdomen tenderness is minimal at the surgical site which is expected. Patient still has Feliz catheter and epidural catheter with surgery team are planning to discontinue today. Once culture are still pending and currently he is on Zosyn. Hemodynamically he is a stable and no fever for more than 48 hours. WBC is trending down to 11.2. Patient is currently on Zosyn and he is getting Ringer lactate at 125 11/11/2020 Patient is awake, comfortable not in distress. He has NG tube with greenish-yellowish discharge Minimal abdominal pain When I saw the patient in the morning is still have Feliz catheter and epidural with plan to be DC'd today Wound culture came back negative and patient remains on Zosyn. Labs showing mild leukocytosis which is stable at 11 K. 11/12/2020 He has minimal discharge from NG tube today which was clipped and provided him with water and ice chips to see if he can tolerate that and then NG tube can be discontinued later on today per Surgery team recommendation Minimal abdominal pain. Feliz catheter was discontinued and patient is able to be with no problem. Epidural cath was removed as well and pain is controlled. 11/13/2020 yesterday patient started feeling significantly better. Today he is even better and improved and he was sitting in his chair relaxed. No NG tube which was taken off. He tolerated liquid diet and it was found to be advanced neurologic to soft/regular diet and abdominal pain is minimal. He has bowel movement. Surgical team are planning to keep the patient today and possible discharge home tomorrow he keeps improving Cardiology team on board for his cardiomyopathy and lisinopril, Aldactone and 6 mg of Lasix is been added. 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 Well developed, well nourished. HEENT: Pupils are round and equally reacting to light. EOMI. No scleral icterus. No conjunctival pallor. Normocephalic, atraumatic. No pharyngeal erythema. No thyromegaly. CARDIOVASCULAR: S1 and S2 present. No murmurs, rubs, or gallops. PULMONARY: Chest is clear to auscultation, no wheezing or crackles. -ABDOMEN: Soft, nontender, nondistended, normoactive bowel sounds. No palpable organomegaly. Surgical wound is clean and closed. MUSCULOSKELETAL: No joint swelling or deformity. EXTREMITIES: No cyanosis, clubbing, or pedal edema. NEUROLOGICAL: Gross neurological examination did not reveal any focal deficits. SKIN: No rashes. no petechiae. - Labs CBC & Chem 7: 11/12/20 04:15 11/12/20 04:15 Labs: Microbiology - Last 24 Hours (Table) 11/08/20 00:05 Blood Culture - Preliminary Blood No Growth after 120 hours 11/07/20 23:50 Blood Culture - Preliminary Blood No Growth after 120 hours 11/08/20 07:20 Anaerobic Culture - Final Other - Other Assessment and Plan Assessment: 1. Small bowel obstruction; status post exploratory laparotomy with small bowel resection with anastomosis -Advance diet per surgery team; incentive spirometry. - Continue with IV antibiotics in form of Zosyn 3.375 g IV every 8 hours 2. Severe nonischemic cardiomyopathy; patient is status post AICD - Cardiology on board; patient is currently euvolemic; metoprolol has been restarted. Also add lisinopril, Aldactone and Lasix 3. Mild renal injury/dehydration; continue with IV fluid hydration; monitor strict SILVESTRE's; monitor renal function and electrolytes 4. Hypertension; patient takes metoprolol 25 mg twice a day; blood pressure is stable; will resume home medications once oral intake is established 5. Bipolar disorder; psychiatry on board to review psych medications Thank you for consulting us and Dr. Kamara DVT prophylaxis; subcu heparin CODE STATUS; full code
--- NOTE | 2020-11-13 13:03 | P.PN ---
Progress Note - Text Progress Note Date: 11/13/20 Interval History: Patient was seen sitting comfortably in his room. The patient states that he wished to speak with this provider to discuss the medication Contrave. The patient reports that he has lost multiple jobs in the past due to his desire to steal and eat. He expresses that he has a problem with constantly desiring food. He is inquiring whether this medication can benefit him so that he may be able to maintain employment. He was informed that this medication is a combination of naltrexone and Wellbutrin. I discussed with him that his Wellbutrin is currently held due to concerns that it may contribute to his bipolar symptoms. I discussed the risks, benefits, and treatment alternatives of both naltrexone and Wellbutrin. We discussed at length the possible initiation of the medication topiramate which has been shown to help with weight loss and decrease appetite. This provider will not start this medications and informed him to discuss these options with his outpatient provider. Mental Status Exam: General Appearance: Patient appears to be stated age is alert, directable, and cooperative. Behavior: Patient is calmly seated without any agitated behavior. Speech: Patient's speech is fluent and nonpressured. Mood/Affect: Mood is improving mildly, affect is congruent and euthymic. Suicidality/Homicidality: Patient denies having any suicidal or homicidal ideation intent or plan. Perceptions: Patient denies any visual hallucinations and denies any auditory hallucinations Though content/process: There is no evidence of any delusional thought content and thought process is linear and goal-directed. Memory and concentration: AOX3, grossly intact for the purposes of this session Judgment and insight: Good Assessment Bipolar disorder, type I Eating disorder, unspecified Plan: -At this time, the patient does not meet criteria for inpatient psychiatric admission. The patient is calm and not exhibiting any symptoms of víctor or psychosis. -We will continue his Seroquel 150 mg at bedtime and lithium 450 mg twice a day. Continue to hold Wellbutrin until reevaluated by his outpatient provider. Discontinue Zyprexa. -Risk, benefits, and treatment alternatives were discussed with the patient in great detail. Recommend that the patient follows up with an outpatient provider for mental health. -Psychiatry will sign off at this time. Thank you for this consult.
--- NOTE | 2020-11-13 14:00 | P.PN ---
Subjective Progress Note Date: 11/13/20 Patient seen and examined at bedside. Doing well. Nasogastric tube was removed yesterday with toleration of clear liquid diet. Denies any nausea or vomiting. Continues to have flatus and states he had a liquid bowel movement. Objective - Vital Signs Vital signs: Vital Signs Temp 98.0 F 11/13/20 05:00 Pulse 69 11/13/20 11:10 Resp 16 11/13/20 11:10 BP 107/64 11/13/20 05:00 Pulse Ox 96 11/13/20 05:00 Intake & Output 11/12/20 11/13/20 11/13/20 18:59 06:59 18:59 Intake Total 950 Balance 950 Weight 102.6 kg 102.9 kg Intake: Oral 950 Other: Voiding Method Toilet Toilet Urinal # Voids 2 # Bowel Movements 0 - Constitutional General appearance: Present: cooperative, no acute distress - Gastrointestinal Gastrointestinal Comment(s): Soft, nontender, nondistended, no rebound, no guarding, midline incision clean, dry and intact - Psychiatric Psychiatric: Present: A&O x's 3 - Labs CBC & Chem 7: 11/12/20 04:15 11/12/20 04:15 Labs: Microbiology - Last 24 Hours (Table) 11/08/20 00:05 Blood Culture - Preliminary Blood No Growth after 120 hours 11/07/20 23:50 Blood Culture - Preliminary Blood No Growth after 120 hours 11/08/20 07:20 Anaerobic Culture - Final Other - Other Assessment and Plan (1) Perforated bowel Narrative/Plan: Postoperative day #5, small bowel resection 2 - Patient beginning to have flatus and liquid bowel movement, advance to full liquid diet - Appreciate psychiatric recommendations on patient's medication - Appreciate medical recommendations - Increase activity with ambulation, this was instructed to the patient - Continue incentive spirometry - Continue pain control - Likely discharge tomorrow - 11/11 Patient's is at bedside and is requesting that TV is unplugged along with no sugar given to the patient as this aggravates his bipolar disease. The patient has denied that this is the case. There does appear to be a disagreement between the and in this case. Social work is involved along with psychiatry due to the patient's history of bipolar disease. The patient himself is requesting continued TV privileges and we will continue to treat the patient's requests unless otherwise dictated by psychiatry. Nursing staff has also mentioned multiple phone calls to the nursing desk and arguments with nursing staff and payroll secretary by the over the past 2 days. Current Visit: Yes Status: Acute Code(s): K63.1 - PERFORATION OF INTESTINE (NONTRAUMATIC) SNOMED Code(s): 14421422
[2020-11-13] MEDS: QUEtiapine 50 MG TAB NG-TUBE SCH (22:11)
[2020-11-14] MEDS: PIPERACILLIN-TAZOBACTAM 3.375 GM in SODIUM CHLORIDE 0.9% 100 ML IVPB SCH ×2 (00:12→08:52)
[2020-11-14] MEDS: HEPARIN SODIUM,PORCINE 5,000 UNIT/ML 1 ML VIAL SQ SCH ×2 (00:12→08:54)
[2020-11-14] MEDS: KETOROLAC 15 MG/ML 1 ML VIAL IVP SCH ×3 (00:12→14:19)
[2020-11-14] MEDS ORDERED: PANTOPRAZOLE 40 MG TABLET PO SCH (07:30)
[2020-11-14] MEDS: LITHIUM CARBONATE 150 MG CAP NG-TUBE SCH (08:53)
[2020-11-14] MEDS: FUROSEMIDE 20 MG TAB PO SCH (08:53)
[2020-11-14] MEDS: METOPROLOL SUCCINATE (ER) 25 MG TAB.ER.24H PO SCH (08:54)
[2020-11-14] MEDS: SPIRONOLACTONE 25 MG TAB PO SCH (08:54)
[2020-11-14 10:17] VITALS: RESP 16
--- NOTE | 2020-11-14 12:28 | P.PN ---
Subjective 55-year-old male patient with history of hypertension, severe nonischemic cardiomyopathy status post AICD presented to the ED with complaint of abdominal discomfort; patient was worked up to ER and admitted with small bowel perforation; patient underwent exploratory laparotomy with bowel resection along with omental hernia repair; patient is POD #0 Patient is seen postoperatively; requesting oral intake and removal of NG tube; patient currently has NG tube to suction 11/09/2020 Patient is seen resting comfortably in bed; reports he has been ambulating in the room since morning; pain controlled fairly well; patient has epidural in place Vital signs are reviewed with temp of 98.8, pulse 102, respiration 14 and blood pressure 112/69 with SpO2 of 93% Lab review reveals white blood count of 14.4, hemoglobin 12.2 and hematocrit of 39.1; chemical profile sodium 138, potassium 4.0, BUN/creatinine of 23/1.16 Patient has been evaluated by psych and medication adjustment has been done; cardiology on board and recommending to start patient back on Toprol-XL Subjective: 11/10/2020 This is a pleasant 55 years old male who presents with signs and symptoms of incarcerated umbilical hernia and perforated bowel status post exploratory laparotomy and hernia repair with small segmental bowel resection for surgery team. Today's postoperative day #2. Patient sitting in chair comfortable, fully awake and oriented, NG tube with yellowish aspirate in the tube. Abdomen tenderness is minimal at the surgical site which is expected. Patient still has Feliz catheter and epidural catheter with surgery team are planning to discontinue today. Once culture are still pending and currently he is on Zosyn. Hemodynamically he is a stable and no fever for more than 48 hours. WBC is trending down to 11.2. Patient is currently on Zosyn and he is getting Ringer lactate at 125 11/11/2020 Patient is awake, comfortable not in distress. He has NG tube with greenish-yellowish discharge Minimal abdominal pain When I saw the patient in the morning is still have Feliz catheter and epidural with plan to be DC'd today Wound culture came back negative and patient remains on Zosyn. Labs showing mild leukocytosis which is stable at 11 K. 11/12/2020 He has minimal discharge from NG tube today which was clipped and provided him with water and ice chips to see if he can tolerate that and then NG tube can be discontinued later on today per Surgery team recommendation Minimal abdominal pain. Feliz catheter was discontinued and patient is able to be with no problem. Epidural cath was removed as well and pain is controlled. 11/13/2020 yesterday patient started feeling significantly better. Today he is even better and improved and he was sitting in his chair relaxed. No NG tube which was taken off. He tolerated liquid diet and it was found to be advanced neurologic to soft/regular diet and abdominal pain is minimal. He has bowel movement. Surgical team are planning to keep the patient today and possible discharge home tomorrow he keeps improving Cardiology team on board for his cardiomyopathy and lisinopril, Aldactone and 6 mg of Lasix is been added. I discussed with the patient and he agrees and was told me his rn diabetes is at [place] and his already contacted him, and he is planned to follow up with him in 1-2 weeks after discharge as instructed 11/14/2020 Patient is improving gradually, these with minimal abdominal pain, is on liquid diet been advanced today per surgery team. No nausea vomiting. He is having bowel movement today. Vital signs stable. no labs Today He is still on Zosyn. Psychiatric note is noted. Objective - Vital Signs Vital signs: Vital Signs Temp 97.8 F 11/14/20 04:34 Pulse 63 11/14/20 04:34 Resp 16 11/14/20 09:57 BP 132/71 11/14/20 04:34 Pulse Ox 96 11/14/20 04:34 Intake & Output 11/13/20 11/14/20 11/14/20 18:59 06:59 18:59 Intake Total 800 Balance 800 Weight 102.9 kg 102.3 kg Intake: Intake, IV Titration 800 Amount Lactated Ringers 1,000 ml 600 @ 50 mls/hr IV .Q20H NAS Rx#:[id number] Piperacillin-Tazobactam 3 200 .375 gm In Sodium Chloride 0.9% 100 ml @ 25 mls/hr IVPB Q8HR NAS Rx# :[id number] Other: Voiding Method Toilet Toilet Toilet # Voids 0 - Exam GENERAL: The patient is alert and oriented x3, not in any acute distress. Well developed, well nourished. HEENT: Pupils are round and equally reacting to light. EOMI. No scleral icterus. No conjunctival pallor. Normocephalic, atraumatic. No pharyngeal erythema. No thyromegaly. CARDIOVASCULAR: S1 and S2 present. No murmurs, rubs, or gallops. PULMONARY: Chest is clear to auscultation, no wheezing or crackles. -ABDOMEN: Soft, nontender, nondistended, normoactive bowel sounds. No palpable organomegaly. Surgical wound is clean and closed. MUSCULOSKELETAL: No joint swelling or deformity. EXTREMITIES: No cyanosis, clubbing, or pedal edema. NEUROLOGICAL: Gross neurological examination did not reveal any focal deficits. SKIN: No rashes. no petechiae. - Labs CBC & Chem 7: 11/12/20 04:15 11/12/20 04:15 Labs: Microbiology - Last 24 Hours (Table) 11/08/20 00:05 Blood Culture - Final Blood No Growth after 144 hours 11/07/20 23:50 Blood Culture - Final Blood No Growth after 144 hours Assessment and Plan Assessment: 1. Small bowel obstruction; status post exploratory laparotomy with small bowel resection with anastomosis -Advance diet per surgery team; incentive spirometry. - Continue with IV antibiotics in form of Zosyn 3.375 g IV every 8 hours 2. Severe nonischemic cardiomyopathy; patient is status post AICD - Cardiology on board; patient is currently euvolemic; metoprolol has been restarted. Also add lisinopril, Aldactone and Lasix 3. Mild renal injury/dehydration; continue with IV fluid hydration; monitor strict SILVESTRE's; monitor renal function and electrolytes 4. Hypertension; patient takes metoprolol 25 mg twice a day; blood pressure is stable; will resume home medications once oral intake is established 5. Bipolar disorder; psychiatry on board to review psych medications Thank you for consulting us and Dr. Kamara DVT prophylaxis; subcu heparin CODE STATUS; full code
--- NOTE | 2020-11-14 12:41 | P.DS ---
Providers Date of admission: 11/08/20 00:17 Attending physician: Yvonne Kamara DO Consults: 11/08/20 09:19 Consult Physician Routine Consulting Provider: Sebas Jack Consult Reason/Comments: med mgmt, post-op Do you want consulting provider notified?: Yes Consult Physician Routine Consulting Provider: Maverick Biswas Reason/Comments: Hx Bipolar disease, medication mgmt Do you want consulting provider notified?: Yes Primary care physician: Raz Mohamud - Discharge Diagnosis(es) (1) Perforated bowel Current Visit: Yes Status: Acute Hospital Course: 55-year-old male presented to the emergency department with complaints of abdominal pain. On workup, he was found to have a bowel perforation. Secondary to this, he was taken to the operating room for exploratory laparotomy and did have a small bowel resection. Postoperatively, patient was sent to the medical surgical floor with nasogastric tube in place and nothing by mouth. Pain control was initially completed with epidural. He did have Feliz catheter in place. As the patient gradually improved, epidural was removed along with Feliz catheter. Nasogastric tube was improved with increase in bowel function. His diet was also advanced as his bowel function increased. Prior to his discharge, patient has had multiple bowel movements and continues to have flatus. During his admission, patient and patient's were noted to have significant social issues. Social work was involved with the case along with psychiatry. Patient's was quite argumentative with nursing staff and executive legal secretary along with physicians. He is noted to be surgically stable for discharge and will be discharged on narcotic pain medication as necessary. He was recommended to try stool softeners taking narcotic pain medication. He is to follow-up in 2 weeks. Procedures: Exploratory laparotomy, small bowel resection 2 Patient Condition at Discharge: Fair Plan - Discharge Summary Discharge Rx Participant: No New Discharge Prescriptions: New HYDROcodone/APAP 5-325MG [[place] 5-325] 1 each PO Q6HR PRN #15 tab PRN Reason: Pain Continue Furosemide [Lasix] 60 mg PO DAILY [place] Carbonate ER [Lithobid] 450 mg PO BID Metoprolol Succinate [Toprol XL] 25 mg PO BID lisinopriL [Zestril] 2.5 mg PO DAILY Spironolactone 25 mg PO BID buPROPion SR [Wellbutrin SR] 150 mg PO TID QUEtiapine [SEROquel] 100 mg PO HS Discharge Medication List Furosemide [Lasix] 60 mg PO DAILY 09/18/19 [History] [place] Carbonate ER [Lithobid] 450 mg PO BID 09/18/19 [History] Metoprolol Succinate [Toprol XL] 25 mg PO BID 11/08/20 [History] QUEtiapine [SEROquel] 100 mg PO HS 11/08/20 [History] Spironolactone 25 mg PO BID 11/08/20 [History] buPROPion SR [Wellbutrin SR] 150 mg PO TID 11/08/20 [History] lisinopriL [Zestril] 2.5 mg PO DAILY 11/08/20 [History] HYDROcodone/APAP 5-325MG [[place] 5-325] 1 each PO Q6HR PRN #15 tab 11/14/20 [Rx] Follow up Appointment(s)/Referral(s): Raz Mohamud MD [Primary Care Provider] - 1-2 days Yvonne Kamara DO [Doctor of Osteopathic Medicine] - 2 Weeks Patient Instructions/Handouts: Heart Failure (DC), Bowel Resection (DC), Ventral Hernia (DC) Activity/Diet/Wound Care/Special Instructions: No lifting greater than 5 pounds for 2 weeks Stay on a soft food diet Follow-up with your primary care physician Okay to shower, do not scrub on incision, apply dressing as necessary Discharge Disposition: HOME SELF-CARE Care Plan Goals (MU): Please get home medications from pharmacy for discharge
[2020-11-14 14:03] VITALS: BP 123/79; PULSE 82; TEMP 97.6
== END 2020-11-14 16:49 | disposition home or self-care (01) | DRG 330 ==
LOC: EC 22:02 → 5NMEDONC 11-08 00:17
PROVIDERS: ADMIT Surgery; ATTEND Surgery
PROC: 0D9670Z Drainage of Stomach with Drainage Device, Via Natural or Artificial Opening (ICD-10-PCS; principal; 2020-11-08 05:11)
PROC: 0DB80ZZ Excision of Small Intestine, Open Approach (ICD-10-PCS; principal; 2020-11-08 05:11)
PROC: 0WQF0ZZ Repair Abdominal Wall, Open Approach (ICD-10-PCS; principal; 2020-11-08 05:11)
DX: K63.1 Perforation of intestine (nontraumatic) (principal); K42.0 Umbilical hernia with obstruction, without gangrene; I42.8 Other cardiomyopathies; F50.9 Eating disorder, unspecified; I11.0 Hypertensive heart disease with heart failure; I50.9 Heart failure, unspecified; I95.9 Hypotension, unspecified; F31.9 Bipolar disorder, unspecified; D72.829 Elevated white blood cell count, unspecified; Z20.822 Contact with and (suspected) exposure to COVID-19; E86.0 Dehydration; K43.9 Ventral hernia without obstruction or gangrene; Z79.899 Other long term (current) drug therapy; Z95.810 Presence of automatic (implantable) cardiac defibrillator; Z86.79 Personal history of other diseases of the circulatory system; Z56.0 Unemployment, unspecified; Z83.3 Family history of diabetes mellitus; Z82.49 Family history of ischemic heart disease and other diseases of the circulatory system
CPT/HCPCS: 36415; 74177; 80053; 80178; 81003; 82150; 83605; 83690; 85025; 85610; 85730; 87040; 87070; 87075; 87205; 87635; 88302; 88307; 96361; 96365; 99291